=== PATIENT | male | born 1955 | race Hispanic/Latino ===

== ENCOUNTER 2018-12-31 08:28 | Inpatient (IN) | payer BC, OTHER ==
[~2018-12-31] VITALS: Ht 175.3 cm; Wt 88.4 kg
[~2018-12-31 08:28] MED LIST: GLYB5TAB8 PO; METF-446 PO; MULT-1052 PO; NEBI10TA PO; OLME1TAB11 PO
[2018-12-31] MEDS ORDERED: FUROSEMIDE 10 MG/ML 4ML VIAL ONE (09:30)
[2018-12-31 09:41] LABS: ABG BASE EXCESS -1.8 mmol/L (-2.0-3.0); ABG HCO3 20.3 mmol/L (21.0-28.0); ABG OXYGEN SATURATION 91.3 % (95.0-99.0); ABG PCO2 28 mmHg (35-48)
[2018-12-31 09:56] LABS: BASOPHILS % (AUTO) 1.2 % (0.0-5.0); EOSINOPHILS % (AUTO) 1.9 % (0.0-8.0); HEMATOCRIT 40.1 % (42-54); LYMPHOCYTES % (AUTO) 18.7 % (21.0-51.0); MEAN CORPUSCULAR HEMOGLOBIN 30.6 pg (27.0-33.0); MEAN CORPUSCULAR HGB CONC 33.3 g/dL (32.0-36.0); MEAN CORPUSCULAR VOLUME 91.9 fL (79-99); MONOCYTES % (AUTO) 9.1 % (3.0-13.0); NEUTROPHILS % (AUTO) 69.1 % (40.0-77.0); PLATELET COUNT (AUTO) 255 K/uL (130-400); RED BLOOD CELL COUNT(AUTO) 4.36 MIL/uL (4.50-6.20); RED CELL DISTRIBUTION WIDTH 13.2 % (11.0-15.5); WHITE BLOOD COUNT (AUTO) 5.3 K/uL (4.8-10.8)
[2018-12-31 10:10] LABS: INR 1.15 (0.85-1.15); PARTIAL THROMBOPLASTIN TIME 27.3 SEC (26.3-35.5)
[2018-12-31] MEDS ORDERED: ONDANSETRON HCL 4 MG/2 ML VIAL ONE (10:23)
[2018-12-31 10:27] LABS: CREATININE 1.2 mg/dL (0.5-1.5)
[2018-12-31 10:32] LABS: ALBUMIN 3.2 g/dL (3.5-5.0); BILIRUBIN,TOTAL 0.6 mg/dL (0.2-1.0); TOTAL PROTEIN, SERUM 6.5 g/dL (6.0-8.3)
[2018-12-31 10:46] LABS: B-TYPE NATRIURETIC PEPTIDE 1230 pg/mL (0-100)
[2018-12-31] MEDS ORDERED: SODIUM CHLORIDE 0.9% 10 ML VIAL IVP PRN (13:30)
[2018-12-31] MEDS ORDERED: FUROSEMIDE 10 MG/ML 4ML VIAL IV SCH (14:15)
[2018-12-31 15:08] VITALS: BP 142/86
[2018-12-31] MEDS ORDERED: ACET-2247 PO (15:24)
[2018-12-31] MEDS ORDERED: INSLAN SQ (15:24)
[2018-12-31] MEDS ORDERED: HYDR-4154 PO (16:08)
[2018-12-31] MEDS ORDERED: AMLO10TA7 PO (16:08)
[2018-12-31] MEDS ORDERED: ATOR40TA71 PO (16:08)
[2018-12-31] MEDS: LOSARTAN 50 MG TABLET PO SCH (16:35)
[2018-12-31] MEDS: ENOXAPARIN SODIUM 40 MG/0.4 ML SYRINGE SQ SCH (16:36)
[2018-12-31 20:10] VITALS: BP 116/69
[2018-12-31] MEDS: FUROSEMIDE 10 MG/ML 4ML VIAL IV SCH (20:25)
[2018-12-31] MEDS: FAMOTIDINE/PF 20 MG/2 ML VIAL IV SCH (20:25)
[2018-12-31] MEDS: CARVEDILOL 3.125 MG TABLET PO SCH (20:27)
--- NOTE | 2018-12-31 21:00 | NUR ---
Dr funes rounded on patient. is aware patient is a Diabetic. No orders given for sliding scale or sugar checks.
[2018-12-31 21:53] LABS: TROPONIN I 0.19 ng/mL (0.00-0.06)
--- NOTE | 2018-12-31 22:00 | NUR ---
Patient c/o sob and sweating post administration of Lasix and Coreg. Patient 02 sats at 96% at 2L. SBP did drop into 90's. Will continue to monitor. MD will be notified if symptoms persist
[2018-12-31 22:17] VITALS: BP 98/63
[2019-01-01] VITALS (8 sets, daily range): BP systolic 99–122; BP diastolic 62–77
[2019-01-01 04:50] LABS: CREATININE 1.3 mg/dL (0.5-1.5); POTASSIUM 3.3 mmol/L (3.5-5.1); TROPONIN I 0.26 ng/mL (0.00-0.06)
--- NOTE | 2019-01-01 07:45 | NUR ---
ASSESSMENT ENCOUNTERED PT AMBULATING FROM BATHROOM, GAIT STEADY AND STRONG WITH STAND BY ASSIST, A&OX3, CALM COOPERATIVE AND DOES NOT APPEAR TO BE IN ANY DISTRESS NOR ANY NEURO DEFICITS PRESENT. PT DENIES PAIN, SOB, NAUSEA. CALL LIGHT WITHIN REACH.
[2019-01-01] MEDS: FAMOTIDINE/PF 20 MG/2 ML VIAL IV SCH ×2 (08:57→21:03)
[2019-01-01] MEDS: FUROSEMIDE 10 MG/ML 4ML VIAL IV SCH (08:58)
[2019-01-01] MEDS: ENOXAPARIN SODIUM 40 MG/0.4 ML SYRINGE SQ SCH (08:58)
[2019-01-01] MEDS: CARVEDILOL 3.125 MG TABLET PO SCH ×2 (08:58→21:02)
[2019-01-01] MEDS: LOSARTAN 50 MG TABLET PO SCH (08:58)
[2019-01-01] MEDS ORDERED: POTASSIUM CHLORIDE 20 MEQ ERTAB PO SCH (10:30)
[2019-01-01] MEDS: INSULIN HUMULIN R 100 UNIT/ML 3ML SQ SCH ×3 (11:30→21:00)
[2019-01-01 12:52] LABS: APPEARANCE,URINE Clear (CLEAR); BILIRUBIN,URINE Negative (NEGATIVE); COLOR,URINE Yellow (YELLOW); GLUCOSE, URINE (UA) Negative (NEGATIVE); KETONES,URINE Negative (NEGATIVE); LEUKOCYTE ESTERASE ,URINE Negative (NEGATIVE); NITRATE,URINE Negative (NEGATIVE); OCCULT BLOOD,URINE Negative (NEGATIVE); PH,URINE 5.5 (5.0-8.0); PROTEIN,URINE Negative (NEGATIVE); UROBILINOGEN,URINE 0.2 mg/dL (0.2-1.0)
[2019-01-01] MEDS ORDERED: POTASSIUM CHLORIDE 20 MEQ ERTAB PO ONE (16:43)
[2019-01-01] MEDS: ASPIRIN 81MG TAB.CHEW PO SCH (17:26)
[2019-01-01] MEDS: FUROSEMIDE 10 MG/ML 2ML VIAL IV SCH (17:26)
[2019-01-01] MEDS: INSULIN GLARGINE 100 UNITS/ML 10 ML VIAL SQ SCH (21:00)
[2019-01-02 03:29] VITALS: BP 125/76
[2019-01-02] MEDS: FUROSEMIDE 10 MG/ML 2ML VIAL IV SCH ×2 (05:11→17:33)
[2019-01-02 05:13] LABS: CHOLESTEROL 112 mg/dL (<200); HDL CHOLESTEROL 30 mg/dL (29-71); LDL DIRECT 67 mg/dL (0-99); TRIGLYCERIDES 104 mg/dL (30-200)
[2019-01-02] MEDS: INSULIN HUMULIN R 100 UNIT/ML 3ML SQ SCH ×4 (05:47→21:09)
[2019-01-02 07:00] VITALS: BP 126/80
[2019-01-02] MEDS ORDERED: REGADENOSON 0.4 MG/5 ML PF SYG IVP SCH (07:15)
--- NOTE | 2019-01-02 07:25 | NUR ---
ASSESSMENT ENCOUNTERED PT SITTING ON SIDE OF BED, A&OX3,CALM COOPERATIVE AND DOES NOT APPEAR TO BE IN ANY DISTRESS NOR ANY NEURO DEFICITS PRESENT. PT DENIES PAIN, SOB, NAUSEA. PT IS NPO FOR LEXISCAN. CALL LIGHT WITHIN REACH.
[2019-01-02 11:00] VITALS: BP 128/76
[2019-01-02] MEDS: ASPIRIN 81MG TAB.CHEW PO SCH (13:25)
[2019-01-02] MEDS: CARVEDILOL 3.125 MG TABLET PO SCH ×2 (13:26→17:30)
[2019-01-02] MEDS: FAMOTIDINE/PF 20 MG/2 ML VIAL IV SCH ×2 (13:26→20:23)
[2019-01-02] MEDS: LOSARTAN 50 MG TABLET PO SCH (13:27)
[2019-01-02] MEDS: ENOXAPARIN SODIUM 40 MG/0.4 ML SYRINGE SQ SCH (13:27)
[2019-01-02 15:00] VITALS: BP 120/80
[2019-01-02 19:00] VITALS: BP 125/74
[2019-01-02] MEDS: INSULIN GLARGINE 100 UNITS/ML 10 ML VIAL SQ SCH (21:00)
[2019-01-02] MEDS ORDERED: ATORVASTATIN CALCIUM 10 MG TABLET PO SCH (21:00)
[2019-01-02 23:41] VITALS: BP 95/58
[2019-01-03 04:00] VITALS: BP 120/76
[2019-01-03 04:07] LABS: BASOPHILS % (AUTO) 1.4 % (0.0-5.0); EOSINOPHILS % (AUTO) 3.4 % (0.0-8.0); HEMATOCRIT 37.6 % (42-54); LYMPHOCYTES % (AUTO) 25.7 % (21.0-51.0); MEAN CORPUSCULAR HEMOGLOBIN 31.5 pg (27.0-33.0); MEAN CORPUSCULAR VOLUME 92.7 fL (79-99); MONOCYTES % (AUTO) 11.8 % (3.0-13.0); NEUTROPHILS % (AUTO) 57.7 % (40.0-77.0); NUCLEATED RED BLOOD CELLS 0.1 % (0.0-0.19); PLATELET COUNT (AUTO) 223 K/uL (130-400); RED BLOOD CELL COUNT(AUTO) 4.06 MIL/uL (4.50-6.20); RED CELL DISTRIBUTION WIDTH 13.3 % (11.0-15.5); WHITE BLOOD COUNT (AUTO) 5.1 K/uL (4.8-10.8)
[2019-01-03 04:19] LABS: CREATININE 1.3 mg/dL (0.5-1.5); MAGNESIUM 1.7 mg/dL (1.80-2.40); PHOSPHORUS 4.1 mg/dL (2.5-4.9); POTASSIUM 3.5 mmol/L (3.5-5.1)
[2019-01-03 04:23] LABS: B-TYPE NATRIURETIC PEPTIDE 1130 pg/mL (0-100)
[2019-01-03] MEDS: FUROSEMIDE 10 MG/ML 2ML VIAL IV SCH (05:18)
[2019-01-03] MEDS: INSULIN HUMULIN R 100 UNIT/ML 3ML SQ SCH ×2 (06:01→11:30)
[2019-01-03 07:53] VITALS: BP 119/77
[2019-01-03] MEDS: ASPIRIN 81MG TAB.CHEW PO SCH (08:50)
[2019-01-03] MEDS: FAMOTIDINE/PF 20 MG/2 ML VIAL IV SCH (08:50)
[2019-01-03] MEDS: LOSARTAN 50 MG TABLET PO SCH (08:51)
[2019-01-03] MEDS: CARVEDILOL 3.125 MG TABLET PO SCH (08:53)
[2019-01-03] MEDS: ENOXAPARIN SODIUM 40 MG/0.4 ML SYRINGE SQ SCH (08:54)
[2019-01-03] MEDS ORDERED: CARV6.2579 PO (09:54)
[2019-01-03] MEDS ORDERED: ASPI-555 PO (09:54)
[2019-01-03] MEDS ORDERED: CLOP75TA32 PO (09:54)
[2019-01-03] MEDS ORDERED: LOSA25TA41 PO (09:54)
[2019-01-03] MEDS ORDERED: FURO40TA5 PO (09:54)
[2019-01-03] MEDS ORDERED: SPIR25TA6 PO (09:54)
[2019-01-03 11:42] VITALS: BP 116/71
--- NOTE | 2019-01-03 13:45 | NUR ---
Patient read discharge instruction, education, and all questions were answered. Packet was given to the patient, all belongings were taken.
--- NOTE | 2019-01-03 15:13 | NUR ---
DC PLAN PATIENT LIVES WITH SPOUSE. INDEPENDENT ABLE TO PERFORM ADL'S. PATIENT HAS NO SERVICES OR DME'S. FEELS SAFE TO RETURN HOME. Addendum: 01/03/19 at 1514 by CARL THOMPSON RN CM Amended: Links added.
== END 2019-01-03 13:50 | disposition home or self-care (01) | DRG 291 ==
LOC: EDH 08:28 → EDHIP 12:40 → 2DH 15:05
PROVIDERS: ADMIT Family Medicine; ATTEND Family Medicine
DX: I11.0 Hypertensive heart disease with heart failure (principal); J96.01 Acute respiratory failure with hypoxia; I50.21 Acute systolic (congestive) heart failure; E44.1 Mild protein-calorie malnutrition; Z16.24 Resistance to multiple antibiotics; I45.10 Unspecified right bundle-branch block; E11.9 Type 2 diabetes mellitus without complications; I34.0 Nonrheumatic mitral (valve) insufficiency; E78.5 Hyperlipidemia, unspecified; I25.5 Ischemic cardiomyopathy; E78.00 Pure hypercholesterolemia, unspecified; I25.2 Old myocardial infarction; Z79.899 Other long term (current) drug therapy; Z87.891 Personal history of nicotine dependence; Z68.28 Body mass index [BMI] 28.0-28.9, adult; Z82.3 Family history of stroke; Z82.49 Family history of ischemic heart disease and other diseases of the circulatory system
CPT/HCPCS: 36415; 36600; 71045; 71046; 78452; 80048; 80053; 80061; 81003; 82550; 82803; 82948; 83735; 83874; 83880; 84100; 84484; 85025; 85610; 85651; 85730; 87040; 93005; 93017; 93306; 93970; 96374; A9500; G0378; J1650; J1815; J1940; J2405; J2785; J3490

== ENCOUNTER 2019-02-08 07:20 | Inpatient (IN) | payer BC ==
[2019-02-06 15:14] VITALS: BP 140/71
[2019-02-06 15:23] LABS: BASOPHILS % (AUTO) 0.9 % (0.0-5.0); EOSINOPHILS % (AUTO) 4.9 % (0.0-8.0); HEMATOCRIT 45.2 % (42-54); LYMPHOCYTES % (AUTO) 26.6 % (21.0-51.0); MEAN CORPUSCULAR HEMOGLOBIN 29.6 pg (27.0-33.0); MEAN CORPUSCULAR HGB CONC 34.1 g/dL (32.0-36.0); MEAN CORPUSCULAR VOLUME 86.8 fL (79-99); MONOCYTES % (AUTO) 8.2 % (3.0-13.0); NEUTROPHILS % (AUTO) 59.1 % (40.0-77.0); PLATELET COUNT (AUTO) 218 K/uL (130-400); RED BLOOD CELL COUNT(AUTO) 5.21 MIL/uL (4.50-6.20); RED CELL DISTRIBUTION WIDTH 12.6 % (11.0-15.5); WHITE BLOOD COUNT (AUTO) 6.7 K/uL (4.8-10.8)
[2019-02-06 15:26] LABS: APPEARANCE,URINE Clear (CLEAR); BILIRUBIN,URINE Negative (NEGATIVE); COLOR,URINE Yellow (YELLOW); GLUCOSE, URINE (UA) Negative (NEGATIVE); KETONES,URINE Negative (NEGATIVE); LEUKOCYTE ESTERASE ,URINE Negative (NEGATIVE); NITRATE,URINE Negative (NEGATIVE); OCCULT BLOOD,URINE Negative (NEGATIVE); PH,URINE 5.5 (5.0-8.0); PROTEIN,URINE Trace mg/dL (NEGATIVE)
[2019-02-06 15:31] LABS: CREATININE 1.3 mg/dL (0.5-1.5); POTASSIUM 4.7 mmol/L (3.5-5.1)
[2019-02-06 15:33] LABS: INR 1.09 (0.85-1.15); PARTIAL THROMBOPLASTIN TIME 25.2 SEC (26.3-35.5); PROTHROMBIN TIME 11.4 SEC (9.6-11.6)
[2019-02-06 15:52] LABS: BACTERIA,URINE Rare /HPF (None Seen); RBC,URINE 0-1 /HPF (0-1); WBC,URINE 0-1 /HPF (0-1)
[2019-02-06 15:53] LABS: SQUAMOUS EPITHELIAL CELL,UR Few /HPF (0-2)
--- NOTE | 2019-02-07 13:45 | NUR ---
LABS ABNORMAL LABS FAXED AND REPORTED TO JIMMIE ANDRADE NP. NO FURTHER ORDERS GIVEN
[2019-02-08] VITALS (31 sets, daily range): BP systolic 104–159; BP diastolic 41–98
[~2019-02-08] VITALS: Ht 170.2 cm; Wt 79.5 kg
[~2019-02-08 07:20] MED LIST changes: +ACET-2247 PO; +ASPI-555 PO; +ATOR40TA71 PO; +CARV6.2579 PO; +CLOP75TA32 PO; +FURO40TA5 PO; -GLYB5TAB8 PO; +INSLAN SQ; +LOSA25TA41 PO; -METF-446 PO; +MV-M1CAP15 PO; -NEBI10TA PO; -OLME1TAB11 PO; +SODIUM CHLORIDE 0.9% 500ML 500 ML IV SCH; +SPIR25TA6 PO
[2019-02-08] MEDS ORDERED: SODIUM CHLORIDE 0.9% 1000ML 1,000 ML IV ONE (07:38)
[2019-02-08] MEDS ORDERED: FURO20TA4 PO (07:52)
[2019-02-08] MEDS ORDERED: CARV6.25 PO (07:52)
[2019-02-08] MEDS ORDERED: NITROGLYCERIN 5 MG/ML 10 ML VIAL IV ONE (08:56)
[2019-02-08] MEDS ORDERED: BIVALIRUDIN 250 MG/VIAL IV ONE (08:56)
[2019-02-08] MEDS ORDERED: IOHEXOL-350 50ML VIAL IV ONE (08:57)
[2019-02-08] MEDS ORDERED: LIDOCAINE HCL 2% 20ML ONE (08:57)
[2019-02-08] MEDS ORDERED: IOHEXOL 350 MG/ML 100ML INFUS..BTL IV ONE (08:57)
[2019-02-08] MEDS ORDERED: MIDAZOLAM HCL 1 MG/ML 2ML VIAL ONE (09:45)
[2019-02-08] MEDS ORDERED: LABETALOL HCL 5 MG/ML 20ML VIAL IV ONE (09:50)
[2019-02-08] MEDS ORDERED: HEPARIN 25000 UNITS/250 ML D5W 250 ML IV ONE (10:07)
[2019-02-08] MEDS ORDERED: HEPARIN SODIUM 1000UNIT/ML 10ML VIAL ONE (10:07)
[2019-02-08] MEDS ORDERED: SODIUM CHLORIDE 0.9% 1000ML 1,000 ML IV SCH (10:22)
[2019-02-08] MEDS ORDERED: GLUCAGON 1MG KIT 1 MG ML IM PRN (10:30)
[2019-02-08] MEDS ORDERED: DEXTROSE 50%-WATER 50 ML DISP.SYRIN IV PRN (10:30)
[2019-02-08] MEDS ORDERED: NITROGLYCERIN 50 MG/D5% WATER 1 BOT ONE (10:31)
[2019-02-08] MEDS ORDERED: NITROGLYCERIN 50 MG/D5% WATER 250 BOT IV PRN (10:45)
[2019-02-08] MEDS ORDERED: HEPARIN 25000 UNITS/250 ML D5W 250 ML IV PRN (11:00)
[2019-02-08] MEDS: INSULIN HUMULIN R 100 UNIT/ML 3ML SQ SCH ×3 (11:30→21:00)
[2019-02-08] MEDS ORDERED: ALPRAZOLAM 0.25 MG TABLET PO PRN (16:15)
[2019-02-08] MEDS ORDERED: ACETAMINOPHEN-CODEINE 300/30MG TAB PO PRN ×2 (16:15→16:30)
[2019-02-08] MEDS ORDERED: ACETAMINOPHEN 325 MG TAB PO PRN (16:15)
[2019-02-08] MEDS ORDERED: ZOLPIDEM TARTRATE 5 MG TAB PO PRN (16:45)
[2019-02-08] MEDS ORDERED: ONDANSETRON HCL 4 MG/2 ML VIAL IVP PRN (16:45)
[2019-02-08] MEDS ORDERED: ALPRAZOLAM 1 MG TAB PO PRN (19:15)
[2019-02-08] MEDS ORDERED: MORPHINE SULFATE 2 MG/ML 1ML SYG ONE (19:44)
[2019-02-08] MEDS: MORPHINE SULFATE 2 MG/ML 1ML SYG IVP PRN ×2 (19:48→21:52)
[2019-02-08] MEDS ORDERED: INSULIN GLARGINE 100 UNITS/ML 10 ML VIAL SQ SCH (21:00)
[2019-02-08] MEDS: FAMOTIDINE/PF 20 MG/2 ML VIAL IV SCH (21:02)
[2019-02-08] MEDS: ATORVASTATIN CALCIUM 20 MG TABLET PO SCH (21:02)
[2019-02-08] MEDS: CARVEDILOL 6.25 MG TABLET PO SCH (21:03)
[2019-02-09] VITALS (59 sets, daily range): BP systolic 87–284; BP diastolic 33–271
--- NOTE | 2019-02-09 00:10 | NUR ---
Dr. Briscoe rounded on patient and discussed open heart surgery with patient. Orders given to obtain consent for CABG on 02/09/19.
[2019-02-09] MEDS: MORPHINE SULFATE 2 MG/ML 1ML SYG IVP PRN ×2 (00:22→10:05)
[2019-02-09 05:33] LABS: HEMOGLOBIN A1C 8.7 % (4.0-6.0)
[2019-02-09 05:34] LABS: BASOPHILS % (AUTO) 0.4 % (0.0-5.0); EOSINOPHILS % (AUTO) 2.9 % (0.0-8.0); HEMATOCRIT 41.7 % (42-54); LYMPHOCYTES % (AUTO) 21.9 % (21.0-51.0); MEAN CORPUSCULAR HEMOGLOBIN 29.4 pg (27.0-33.0); MEAN CORPUSCULAR HGB CONC 33.8 g/dL (32.0-36.0); MEAN CORPUSCULAR VOLUME 87.1 fL (79-99); MONOCYTES % (AUTO) 10.2 % (3.0-13.0); NEUTROPHILS % (AUTO) 64.2 % (40.0-77.0); PLATELET COUNT (AUTO) 180 K/uL (130-400); RED BLOOD CELL COUNT(AUTO) 4.79 MIL/uL (4.50-6.20); RED CELL DISTRIBUTION WIDTH 12.7 % (11.0-15.5); WHITE BLOOD COUNT (AUTO) 7.8 K/uL (4.8-10.8)
[2019-02-09 05:35] LABS: INR 1.12 (0.85-1.15); PROTHROMBIN TIME 11.7 SEC (9.6-11.6)
[2019-02-09 05:46] LABS: CREATININE 1.2 mg/dL (0.5-1.5); MAGNESIUM 1.5 mg/dL (1.80-2.40); POTASSIUM 4.2 mmol/L (3.5-5.1)
[2019-02-09] MEDS: INSULIN HUMULIN R 100 UNIT/ML 3ML SQ SCH ×2 (07:30→11:24)
[2019-02-09] MEDS ORDERED: EPINEPHRINE 8 MG in SODIUM CHLORIDE 0.9% 242 ML IV PRN (08:45)
[2019-02-09] MEDS ORDERED: NOREPINEPHRINE BITARTRATE 8 MG in SODIUM CHLORIDE 0.9% 250 ML IV PRN (08:45)
[2019-02-09] MEDS ORDERED: AMINOCAPROIC ACID 15,000 MG in SODIUM CHLORIDE 0.9% 500ML 420 ML IV PRN (08:45)
[2019-02-09] MEDS: CARVEDILOL 6.25 MG TABLET PO SCH (09:00)
[2019-02-09] MEDS ORDERED: SPIRONOLACTONE 25 MG TAB PO SCH (09:00)
[2019-02-09] MEDS ORDERED: ASPIRIN 81 MG EC TAB PO SCH (09:00)
[2019-02-09] MEDS ORDERED: LOSARTAN 50 MG TABLET PO SCH (09:00)
[2019-02-09] MEDS ORDERED: FUROSEMIDE 20 MG TABLET PO SCH (09:00)
[2019-02-09] MEDS ORDERED: MAGNESIUM 2GM PREMIX 50ML 50 ML IV PRN ×2 (09:15→16:00)
[2019-02-09] MEDS: FAMOTIDINE/PF 20 MG/2 ML VIAL IV SCH ×2 (10:05→23:09)
[2019-02-09] MEDS ORDERED: NITROGLYCERIN 50 MG/D5% WATER 1 BOT ONE (12:42)
[2019-02-09] MEDS ORDERED: CLINDAMYCIN 900 MG/D5% WATER 50 ML IV SCH (14:00)
[2019-02-09] MEDS ORDERED: AMINOCAPROIC ACID 250 MG/ML 20 ML VIAL IV ONE (14:29)
[2019-02-09] MEDS ORDERED: EPINEPHRINE 1 MG/ML AMPULE ONE (14:29)
[2019-02-09] MEDS ORDERED: LIDOCAINE PF 2% 5ML ABBOJECT ONE (14:29)
[2019-02-09] MEDS ORDERED: ESMOLOL HCL 10 MG/ML 10 ML VIAL ONE (14:29)
[2019-02-09] MEDS ORDERED: HEPARIN SODIUM 1000UNIT/ML 10ML VIAL ONE ×3 (14:29→15:26)
[2019-02-09] MEDS ORDERED: SODIUM BICARB 50MEQ 50ML VIAL ONE (14:29)
[2019-02-09] MEDS ORDERED: PROTAMINE SULFATE 10 MG/ML 25ML VIAL IV ONE (14:29)
[2019-02-09] MEDS ORDERED: NOREPINEPHRINE BITARTRATE 1 MG/1 ML ML IV ONE (14:30)
[2019-02-09] MEDS ORDERED: MIDAZOLAM HCL 1 MG/ML 2ML VIAL ONE (14:30)
[2019-02-09] MEDS ORDERED: ROCURONIUM 10MG/1ML SYR 10 MG/ML ML ONE (14:30)
[2019-02-09] MEDS ORDERED: FENTANYL CITRATE PF 50 MCG/1 ML 20ML VIAL IJ ONE (14:30)
[2019-02-09] MEDS ORDERED: PROPOFOL 10 MG/ML 20ML VIAL IV ONE (14:30)
[2019-02-09] MEDS ORDERED: ETOMIDATE 2 MG/ML 10 ML VIAL ONE (14:32)
[2019-02-09] MEDS ORDERED: AMIODARONE HCL 50 MG/ML 3 ML VIAL ONE ×2 (14:34→14:35)
[2019-02-09] MEDS ORDERED: OCTYL 2-CYANOACRYLATE 1 EACH TP ONE (14:40)
[2019-02-09] MEDS ORDERED: PAPAVERINE HCL 30 MG/ML 2ML VIAL ONE (14:40)
[2019-02-09] MEDS ORDERED: BACITRACIN 50,000 UNIT VIAL ONE (14:40)
--- NOTE | 2019-02-09 15:18 | NUR ---
DC PLAN VISITED WITH PATIENT. PATIENT LIVES WITH PARENTS. INDEPENDENT ABLE TO PERFORM ADL'S. PATIENT HAS NO SERVICES OR DME'S FEELS SAFE TO RETURN HOME. Addendum: 02/09/19 at 1519 by CARL THOMPSON RN CM Amended: Links added.
[2019-02-09 15:39] LABS: ABG BASE EXCESS -1.6 mmol/L (-2.0-3.0); ABG HCO3 20.2 mmol/L (21.0-28.0); ABG OXYGEN SATURATION 99.4 % (95.0-99.0); ABG PCO2 27 mmHg (35-48)
[2019-02-09] MEDS ORDERED: SODIUM CHLORIDE 0.9% 250 ML IV PRN (16:00)
[2019-02-09] MEDS ORDERED: INSULIN REGULAR, HUMAN 3ML 100 UNIT in SODIUM CHLORIDE 0.9% 99 ML IV SCH ×2 (16:00)
[2019-02-09] MEDS ORDERED: SODIUM CHLORIDE 0.9% 10 ML VIAL IVP PRN (16:00)
[2019-02-09] MEDS ORDERED: NOREPINEPHRINE 4MG/NS 250ML 250 ML IV PRN (16:00)
[2019-02-09] MEDS ORDERED: EPINEPHRINE 8 MG in DEXTROSE 5%-WATER 250 ML IV PRN (16:00)
[2019-02-09] MEDS ORDERED: CALCIUM GLUCONATE 1 GM in SODIUM CHLORIDE 0.9% 50 ML IV PRN (16:00)
[2019-02-09] MEDS ORDERED: PROPOFOL 1000 MG/100 ML 100 ML IV PRN (16:00)
[2019-02-09] MEDS ORDERED: AMINOCAPROIC ACID 15,000 MG in SODIUM CHLORIDE 0.9% 250 ML IV SCH (16:00)
[2019-02-09] MEDS ORDERED: SODIUM CHLORIDE 0.9% 1000ML 1,000 ML IV SCH (16:00)
[2019-02-09] MEDS ORDERED: NITROGLYCERIN 50 MG/D5% WATER 250 BOT IV SCH (16:00)
[2019-02-09] MEDS ORDERED: DEXTROSE 50%-WATER 50 ML DISP.SYRIN IV PRN (16:00)
[2019-02-09] MEDS ORDERED: TRAMADOL HCL 50 MG TABLET PO PRN (16:00)
[2019-02-09] MEDS ORDERED: GLUCAGON 1MG KIT 1 MG ML IM PRN (16:00)
[2019-02-09] MEDS ORDERED: MORPHINE SULFATE 4 MG/1ML SYG IV PRN (16:00)
[2019-02-09] MEDS ORDERED: MORPHINE SULFATE 2 MG/ML 1ML SYG IV PRN (16:00)
[2019-02-09] MEDS ORDERED: SODIUM CHLORIDE 0.9% 500ML 500 ML IV SCH (16:00)
[2019-02-09] MEDS ORDERED: POTASSIUM PHOS 15 mMOL+NS250ML 250 ML IV PRN (16:00)
[2019-02-09] MEDS ORDERED: ALBUMIN (HUMAN) 5% 250 ML IV PRN (16:00)
[2019-02-09] MEDS ORDERED: ONDANSETRON HCL 4 MG/2 ML VIAL IV PRN (16:00)
[2019-02-09] MEDS ORDERED: ACETAMINOPHEN 650 MG SUPPOSITORY RC PRN (16:00)
[2019-02-09 17:04] LABS: ABG BASE EXCESS 0.3 mmol/L (-2.0-3.0); ABG HCO3 23.2 mmol/L (21.0-28.0); ABG OXYGEN SATURATION 76.5 % (95.0-99.0); ABG PCO2 33 mmHg (35-48)
[2019-02-09] MEDS ORDERED: FENTANYL CITRATE PF 50 MCG/1 ML 2ML VIAL ONE ×3 (18:10)
[2019-02-09 18:26] LABS: ABG BASE EXCESS 1.5 mmol/L (-2.0-3.0); ABG HCO3 23.2 mmol/L (21.0-28.0); ABG OXYGEN SATURATION 98.9 % (95.0-99.0); ABG PCO2 29 mmHg (35-48)
--- NOTE | 2019-02-09 19:00 | NUR ---
Received patient from [place] at 1845 Intubated and sedated with balloon pump in right groin with a ratio of 1:1. Epi at 0.06 mcg/kg/min, Levofed at 3 mcg/min and amacar at 55 ml/hr. A-line not working but balloon pump pressure as tolerated. Pulses to doppler, chest tubes X2 and RIJ/left A-line in place.
[2019-02-09 19:15] LABS: ABG BASE EXCESS 0.3 mmol/L (-2.0-3.0); ABG HCO3 22.5 mmol/L (21.0-28.0); ABG OXYGEN SATURATION 98.6 % (95.0-99.0); ABG PCO2 30 mmHg (35-48)
[2019-02-09 19:22] LABS: HEMATOCRIT 36.3 % (42-54); MEAN CORPUSCULAR HEMOGLOBIN 29.9 pg (27.0-33.0); MEAN CORPUSCULAR VOLUME 85.4 fL (79-99); PLATELET COUNT (AUTO) 120 K/uL (130-400); RED BLOOD CELL COUNT(AUTO) 4.25 MIL/uL (4.50-6.20); RED CELL DISTRIBUTION WIDTH 12.7 % (11.0-15.5); WHITE BLOOD COUNT (AUTO) 13.3 K/uL (4.8-10.8)
[2019-02-09] MEDS: POTASSIUM CHLORIDE 20MEQ/100ML 100 ML IV PRN ×3 (19:25→23:55)
[2019-02-09 19:38] LABS: INR 1.27 (0.85-1.15); PARTIAL THROMBOPLASTIN TIME 25.3 SEC (26.3-35.5); PROTHROMBIN TIME 13.2 SEC (9.6-11.6)
[2019-02-09 19:43] LABS: MAGNESIUM 1.4 mg/dL (1.80-2.40); PHOSPHORUS 3.7 mg/dL (2.5-4.9); POTASSIUM 3.4 mmol/L (3.5-5.1)
[2019-02-09] MEDS ORDERED: CALCIUM GLUCONATE 1 GM/10 ML VIAL IV ONE ×2 (20:41→23:57)
[2019-02-09 20:48] LABS: ABG BASE EXCESS -1.4 mmol/L (-2.0-3.0); ABG HCO3 20.8 mmol/L (21.0-28.0); ABG OXYGEN SATURATION 99.6 % (95.0-99.0); ABG PCO2 29 mmHg (35-48)
[2019-02-09] MEDS: SODIUM BICARB 50MEQ 50ML VIAL IV PRN ×2 (20:51→22:53)
[2019-02-09] MEDS ORDERED: PHARMACY COMMUNICATION MISC SCH (21:30)
[2019-02-09 21:54] LABS: ABG BASE EXCESS 0.5 mmol/L (-2.0-3.0); ABG HCO3 22.9 mmol/L (21.0-28.0); ABG OXYGEN SATURATION 98.6 % (95.0-99.0); ABG PCO2 30 mmHg (35-48)
[2019-02-09 22:49] LABS: ABG BASE EXCESS -0.5 mmol/L (-2.0-3.0); ABG OXYGEN SATURATION 99.4 % (95.0-99.0); ABG PCO2 31 mmHg (35-48)
[2019-02-09] MEDS: ATORVASTATIN CALCIUM 20 MG TABLET PO SCH (23:09)
[2019-02-09 23:52] LABS: ABG BASE EXCESS 1.7 mmol/L (-2.0-3.0); ABG HCO3 24.5 mmol/L (21.0-28.0); ABG OXYGEN SATURATION 97.1 % (95.0-99.0); ABG PCO2 32 mmHg (35-48)
[2019-02-10] VITALS (56 sets, daily range): BP systolic 61–180; BP diastolic 21–103
[2019-02-10] MEDS: POTASSIUM CHLORIDE 20MEQ/100ML 100 ML IV PRN ×3 (00:36→06:43)
[2019-02-10 00:52] LABS: ABG BASE EXCESS -0.1 mmol/L (-2.0-3.0); ABG HCO3 22.8 mmol/L (21.0-28.0); ABG OXYGEN SATURATION 97.3 % (95.0-99.0); ABG PCO2 31 mmHg (35-48)
[2019-02-10] MEDS: SODIUM BICARB 50MEQ 50ML VIAL IV PRN (00:58)
[2019-02-10] MEDS: CLINDAMYCIN 900 MG/D5% WATER 50 ML IV SCH ×4 (00:58→18:32)
[2019-02-10 01:54] LABS: ABG BASE EXCESS 3.6 mmol/L (-2.0-3.0); ABG HCO3 25.9 mmol/L (21.0-28.0); ABG OXYGEN SATURATION 97.1 % (95.0-99.0); ABG PCO2 32 mmHg (35-48)
[2019-02-10 02:58] LABS: ABG BASE EXCESS 1.8 mmol/L (-2.0-3.0); ABG HCO3 26.3 mmol/L (21.0-28.0); ABG PCO2 41 mmHg (35-48)
[2019-02-10 03:58] LABS: ABG BASE EXCESS 3.5 mmol/L (-2.0-3.0); ABG HCO3 28.5 mmol/L (21.0-28.0); ABG OXYGEN SATURATION 95.8 % (95.0-99.0); ABG PCO2 45 mmHg (35-48)
[2019-02-10 04:53] LABS: HEMATOCRIT 29.1 % (42-54); MEAN CORPUSCULAR HGB CONC 34.7 g/dL (32.0-36.0); MEAN CORPUSCULAR VOLUME 86.4 fL (79-99); PLATELET COUNT (AUTO) 118 K/uL (130-400); RED BLOOD CELL COUNT(AUTO) 3.37 MIL/uL (4.50-6.20); RED CELL DISTRIBUTION WIDTH 12.9 % (11.0-15.5)
[2019-02-10 04:55] LABS: ABG HCO3 27.2 mmol/L (21.0-28.0); ABG OXYGEN SATURATION 98.6 % (95.0-99.0); ABG PCO2 36 mmHg (35-48)
[2019-02-10 05:19] LABS: INR 1.17 (0.85-1.15); PARTIAL THROMBOPLASTIN TIME 26.8 SEC (26.3-35.5); PROTHROMBIN TIME 12.2 SEC (9.6-11.6)
[2019-02-10 05:26] LABS: CREATININE 1.5 mg/dL (0.5-1.5); MAGNESIUM 2.1 mg/dL (1.80-2.40); PHOSPHORUS 2.1 mg/dL (2.5-4.9)
--- NOTE | 2019-02-10 05:37 | NUR ---
Dr. Briscoe called the unit and ordered to wean balloon pump to 1:2.
[2019-02-10] MEDS ORDERED: PHARMACY COMMUNICATION MISC SCH (06:45)
[2019-02-10 08:08] LABS: HEMATOCRIT 28.7 % (42-54); MEAN CORPUSCULAR HEMOGLOBIN 29.3 pg (27.0-33.0); MEAN CORPUSCULAR HGB CONC 33.4 g/dL (32.0-36.0); MEAN CORPUSCULAR VOLUME 87.5 fL (79-99); PLATELET COUNT (AUTO) 115 K/uL (130-400); RED BLOOD CELL COUNT(AUTO) 3.28 MIL/uL (4.50-6.20); WHITE BLOOD COUNT (AUTO) 12.5 K/uL (4.8-10.8)
--- NOTE | 2019-02-10 08:28 | NUR ---
PT WAS EXTUBATED AFTER PT HAD PARTLY TAKEN ET TUBE OUT AND PLACED ON AEROSOL FM AT 40%. ABG'S DRAWN AND WITHIN GOOD PARAMETERS.
[2019-02-10 08:30] LABS: ABG BASE EXCESS 1.3 mmol/L (-2.0-3.0); ABG HCO3 26.1 mmol/L (21.0-28.0); ABG OXYGEN SATURATION 95.4 % (95.0-99.0); ABG PCO2 42 mmHg (35-48)
--- NOTE | 2019-02-10 08:35 | NUR ---
PT WAS PLACED ON 1:3 RATIO ON THE IABP, AND WILL MONITOR IF IS ABLE TO TOLERATE.
[2019-02-10] MEDS: FAMOTIDINE/PF 20 MG/2 ML VIAL IV SCH ×2 (08:53→20:15)
[2019-02-10] MEDS: TRAMADOL HCL 50 MG TABLET PO PRN ×2 (09:41→20:21)
--- NOTE | 2019-02-10 14:00 | NUR ---
PT HAD BEEN C/O UNABLE TO URINATE AND EMPTY HIS BLADDER. PT HAD A BLADDER SCAN DONE AND NO URINE WAS NOTED IN BLADDER AND PT WAS ADVISED. NO FURTHER COMPLAINTS NOTED.
[2019-02-10] MEDS: ACETAMINOPHEN 325 MG TAB PO PRN (14:16)
--- NOTE | 2019-02-10 14:27 | NUR ---
patient is not ready for PT Evaluation for today as per Glen Velásquez RN (Patient is on balloon pump) Addendum: 02/10/19 at 1429 by ERLIN JACKSON, PT PT Amended: Links added.
--- NOTE | 2019-02-10 15:05 | NUR ---
PT WAS PLACED ON 1:3 ON THE IABP AND WILL BE DC'D LATER THIS PM.
--- NOTE | 2019-02-10 16:00 | NUR ---
PT CARE IABC discontinued by DOMINICK Domingo, under the direction of . Manual pressure applied to site [id number] - hemostasis obtained. Light pressure drsg applied to site - no bleeding/oozing or hematoma present. HOB elevated to 10-degrees. Pt repositioned for comfort.
--- NOTE | 2019-02-10 17:00 | NUR ---
TRANSFER Transferred by bed to room 219. Call light placed within reach.
[2019-02-10] MEDS: ATORVASTATIN CALCIUM 20 MG TABLET PO SCH (20:16)
[2019-02-11] VITALS (20 sets, daily range): BP systolic -10–166; BP diastolic -10–85
[2019-02-11] MEDS: CLINDAMYCIN 900 MG/D5% WATER 50 ML IV SCH ×4 (00:50→18:21)
[2019-02-11 03:52] LABS: HEMATOCRIT 26.5 % (42-54); MEAN CORPUSCULAR HEMOGLOBIN 28.9 pg (27.0-33.0); MEAN CORPUSCULAR HGB CONC 32.5 g/dL (32.0-36.0); MEAN CORPUSCULAR VOLUME 88.9 fL (79-99); PLATELET COUNT (AUTO) 115 K/uL (130-400); RED BLOOD CELL COUNT(AUTO) 2.98 MIL/uL (4.50-6.20); RED CELL DISTRIBUTION WIDTH 13.2 % (11.0-15.5); WHITE BLOOD COUNT (AUTO) 10.7 K/uL (4.8-10.8)
[2019-02-11 04:01] LABS: CREATININE 1.4 mg/dL (0.5-1.5); POTASSIUM 4.7 mmol/L (3.5-5.1)
[2019-02-11 04:39] LABS: BAND NEUTROPHILS % (MANUAL) 10 % (0-2); BASOPHILS % (MANUAL) 2 % (0-2); LYMPHOCYTES % (MANUAL) 12 % (22-44); MAN.DIFF COMMENT-IMPRESSION MANUAL DIFFERENTIAL; MONOCYTES % (MANUAL) 2 % (2-9); PLATELET MORPHOLOGY COMMENT ADEQUATE; SEGMENTED NEUTROPHILS % 74 % (40-70)
--- NOTE | 2019-02-11 04:40 | NUR ---
Patient wakes up and trying to pull out invasive lines,combative and very agitated.Patient attempted to jump out of bed.Staffs went to check on patient immediately and trying to re orient patient but to o avail.steel pan form placing supervisor and electronic systems security assessment were notified.DANIELLE Stack was called and notified regarding patient status.Received new order.roguer came as well and patient continue to be aggressive.Will continue to monitor patient.
[2019-02-11] MEDS ORDERED: LORAZEPAM 2 MG/ML 1 ML VIAL IVP ONE (04:45)
--- NOTE | 2019-02-11 05:00 | NUR ---
Bilateral soft wrist restraints applied to patient .Will continue to monitor patient.
--- NOTE | 2019-02-11 07:28 | NUR ---
Patient V/S stable.Remained on bilateral wrist restraints,sister to bedside.Bedside report given to incoming NOD using SBAR all questions answered.
[2019-02-11] MEDS: FAMOTIDINE 20MG TAB 20 MG TAB PO SCH (11:11)
[2019-02-11] MEDS: ASPIRIN 325MG EC TAB 325 MG TABLET.DR PO SCH (14:00)
[2019-02-11] MEDS: INSULIN HUMULIN R 100 UNIT/ML 3ML SQ SCH ×2 (16:07→21:04)
--- NOTE | 2019-02-11 18:00 | NUR ---
D/C CHEST TUBES, D/C F/C, D/C ARTERIAL LINE PER MD ORDER, EDUCATED PATIENT ON PROCEDURE FOR F/C REMOVAL. PATIENT STATED UNDERSTANDING, FAMILY AT BEDSIDE. 10 ML REMOVED FROM F/C. F/C REMOVED WITHOUT DIFFICULTY. URINAL PROVIDED. EDUCATED PATIENT ON ARTERIAL LINE REMOVAL, PATIENT STATED UNDERSTANDING. ARTERIAL LINE REMOVED WITHOUT DIFFICULTY. PRESSURE HELD FOR 10 MINUTES. SIMPLE GAUZE DRESSING PLACED AND SECURED WITH PAPER TAPE. EDUCATED PATIENT ON REMOVAL OF CHEST TUBE PROCEDURE. PRACTICED BREATHING TECHNIQUE, 3 DEEP BREATHS AND HOLDING IN THE FINAL BREATH. REMOVED CURRENT DRESSING, CLEANSED SITE WITH CHLORHEXADINE PREP. PREPARED SUTURES FOR TYING, REMOVED FIRST CHEST TUBE WITHOUT RESISTANCE IN ONE CARNES PULL, PULLED SUTURE TIGHT, TIED MULTIPLE KNOTS AND COVERED WITH VASELINE GAUZE. REPEATED SAME PROCEDURE FOR SECOND CHEST TUBE. REMOVED WITHOUT DIFFICULTY. COVERED WITH VASELINE GAUZE AND GAUZE, THEN SECURED WITH PAPER TAPE
[2019-02-11] MEDS: FUROSEMIDE 20 MG TABLET PO SCH (18:22)
[2019-02-11] MEDS: ATORVASTATIN CALCIUM 20 MG TABLET PO SCH (20:57)
[2019-02-11] MEDS: CARVEDILOL 3.125 MG TABLET PO SCH (20:58)
[2019-02-12] MEDS: CLINDAMYCIN 900 MG/D5% WATER 50 ML IV SCH ×4 (00:08→18:20)
[2019-02-12 03:19] VITALS: BP 133/70
[2019-02-12 03:44] LABS: MEAN CORPUSCULAR HEMOGLOBIN 29.5 pg (27.0-33.0); MEAN CORPUSCULAR HGB CONC 33.2 g/dL (32.0-36.0); PLATELET COUNT (AUTO) 137 K/uL (130-400); RED BLOOD CELL COUNT(AUTO) 2.81 MIL/uL (4.50-6.20); RED CELL DISTRIBUTION WIDTH 13.3 % (11.0-15.5); WHITE BLOOD COUNT (AUTO) 10.4 K/uL (4.8-10.8)
[2019-02-12 03:54] LABS: CREATININE 1.3 mg/dL (0.5-1.5); POTASSIUM 4.3 mmol/L (3.5-5.1)
[2019-02-12 04:22] LABS: BAND NEUTROPHILS % (MANUAL) 2 % (0-2); EOSINOPHILS % (MANUAL) 1 % (1-6); LYMPHOCYTES % (MANUAL) 13 % (22-44); MAN.DIFF COMMENT-IMPRESSION MANUAL DIFFERENTIAL; MONOCYTES % (MANUAL) 6 % (2-9); PLATELET MORPHOLOGY COMMENT ADEQUATE; SEGMENTED NEUTROPHILS % 78 % (40-70)
[2019-02-12] MEDS: INSULIN HUMULIN R 100 UNIT/ML 3ML SQ SCH ×4 (05:50→20:54)
[2019-02-12 07:20] VITALS: BP 110/61
--- NOTE | 2019-02-12 07:30 | NUR ---
ASSESSMENT ENCOUNTERED PT A&OX3, CALM COOPERATIVE AND DOES NOT APPEAR TO BE IN ANY DISTRESS NOR ANY NEURO DEFICITS PRESENT. PT DENIES PAIN, SOB, NAUSEA. STERNAL AND CHEST TUBE INCISION SITES DRY AND INTACT, DRESSING TO RIJ DRY ANT INTACT, INCENTIVE SPIROMETER AVERAGE OF 750ML PER ATTEMPT. PT IS ABLE TO TOLERATE FOODS, FLUIDS AND MEDICATION WITHOUT THROAT CLEARING OR COUGH. PT IS AMBULATORY, GAIT SLOW AND STEADY WITH 2 PERSON ASSIST. PT IS ABLE TO URINATE IN INCREMENTS OF 100ML AVERAGE IN URINAL APPROXIMATELY EVERY HOUR, PT REFUSES VANN CATH RE-INSERTION AND/OR STRAIGHT CATH. PT DENIES ANY ABDOMINAL DISCOMFORT. CALL LIGHT WITHIN REACH, FAMILY AT BEDSIDE.
--- NOTE | 2019-02-12 08:30 | NUR ---
BLADDER SCAN DISPLAYS 290ML, PT REFUSES VANN RE-INSERTION OR STRAIGHT CATH AND STATES HE WILL KEEP ATTEMPTING WITH URINAL
[2019-02-12] MEDS ORDERED: TAMSULOSIN HCL 0.4 MG CAP.ER.24H PO SCH (10:30)
[2019-02-12] MEDS: ASPIRIN 325MG EC TAB 325 MG TABLET.DR PO SCH (11:26)
[2019-02-12] MEDS: CARVEDILOL 3.125 MG TABLET PO SCH ×2 (11:27→20:33)
[2019-02-12] MEDS: FUROSEMIDE 20 MG TABLET PO SCH ×2 (11:27→17:38)
[2019-02-12] MEDS: FAMOTIDINE 20MG TAB 20 MG TAB PO SCH (11:27)
[2019-02-12 11:30] VITALS: BP 113/59
[2019-02-12 15:00] VITALS: BP 111/61
[2019-02-12 20:02] VITALS: BP 125/66
[2019-02-12] MEDS: ATORVASTATIN CALCIUM 20 MG TABLET PO SCH (20:33)
[2019-02-13 00:14] VITALS: BP 113/55
[2019-02-13 04:22] VITALS: BP 120/58
[2019-02-13 04:35] LABS: HEMATOCRIT 23.2 % (42-54); MEAN CORPUSCULAR HEMOGLOBIN 29.4 pg (27.0-33.0); MEAN CORPUSCULAR HGB CONC 33.6 g/dL (32.0-36.0); MEAN CORPUSCULAR VOLUME 87.5 fL (79-99); PLATELET COUNT (AUTO) 146 K/uL (130-400); RED BLOOD CELL COUNT(AUTO) 2.65 MIL/uL (4.50-6.20); RED CELL DISTRIBUTION WIDTH 13.7 % (11.0-15.5); WHITE BLOOD COUNT (AUTO) 7.9 K/uL (4.8-10.8)
[2019-02-13 04:47] LABS: CREATININE 1.3 mg/dL (0.5-1.5); POTASSIUM 3.7 mmol/L (3.5-5.1)
[2019-02-13] MEDS: INSULIN HUMULIN R 100 UNIT/ML 3ML SQ SCH ×4 (05:50→21:23)
[2019-02-13 07:48] VITALS: BP 128/70
[2019-02-13] MEDS: FAMOTIDINE 20MG TAB 20 MG TAB PO SCH (09:24)
[2019-02-13] MEDS: FUROSEMIDE 20 MG TABLET PO SCH ×2 (09:24→15:59)
[2019-02-13] MEDS: ASPIRIN 325MG EC TAB 325 MG TABLET.DR PO SCH (09:25)
[2019-02-13] MEDS: CARVEDILOL 3.125 MG TABLET PO SCH ×2 (09:25→21:27)
[2019-02-13] MEDS ORDERED: POTASSIUM CHLORIDE 20 MEQ ERTAB PO ONE (09:26)
[2019-02-13] MEDS: LISINOPRIL 5 MG TABLET PO SCH (09:27)
[2019-02-13] MEDS ORDERED: LIDOCAINE HCL-MPF 1% 2ML VIAL IV PRN (09:30)
[2019-02-13] MEDS ORDERED: POTASSIUM CHLORIDE 10% ELIXIR 20 MEQ/15 ML UDCUP PO PRN (09:30)
[2019-02-13] MEDS ORDERED: POTASSIUM CHLORIDE 20MEQ/100ML 100 ML IV PRN (09:30)
--- NOTE | 2019-02-13 10:38 | NUR ---
PATIENT IS AMBULATING ON THE HALLWAYS WITH PT AT THIS TIME.
[2019-02-13] MEDS: POTASSIUM CHLORIDE 20 MEQ ERTAB PO PRN (11:08)
[2019-02-13 11:27] VITALS: BP 126/58
[2019-02-13 16:58] VITALS: BP 132/67
[2019-02-13] MEDS ORDERED: EPOETIN ALFA 10,000 UNIT/ML VIAL SQ SCH (17:00)
[2019-02-13] MEDS: IRON SUCROSE COMPLEX 100 MG in SODIUM CHLORIDE 0.9% 50 ML IV SCH (17:23)
[2019-02-13 20:36] VITALS: BP 128/64
[2019-02-13] MEDS ORDERED: INSULIN GLARGINE 100 UNITS/ML 10 ML VIAL SQ SCH (21:00)
[2019-02-13] MEDS: ATORVASTATIN CALCIUM 20 MG TABLET PO SCH (21:27)
[2019-02-13] MEDS: TAMSULOSIN HCL 0.4 MG CAP.ER.24H PO SCH (21:27)
[2019-02-14] VITALS (7 sets, daily range): BP systolic 115–135; BP diastolic 56–69
[2019-02-14] MEDS: ACETAMINOPHEN 325 MG TAB PO PRN ×2 (00:27→21:33)
[2019-02-14 05:16] LABS: BASOPHILS % (AUTO) 0.5 % (0.0-5.0); HEMATOCRIT 21.6 % (42-54); LYMPHOCYTES % (AUTO) 22.6 % (21.0-51.0); MEAN CORPUSCULAR HEMOGLOBIN 29.7 pg (27.0-33.0); MEAN CORPUSCULAR HGB CONC 34.3 g/dL (32.0-36.0); MEAN CORPUSCULAR VOLUME 86.7 fL (79-99); MONOCYTES % (AUTO) 9.5 % (3.0-13.0); NEUTROPHILS % (AUTO) 61.8 % (40.0-77.0); PLATELET COUNT (AUTO) 165 K/uL (130-400); RED BLOOD CELL COUNT(AUTO) 2.49 MIL/uL (4.50-6.20); RED CELL DISTRIBUTION WIDTH 13.3 % (11.0-15.5); WHITE BLOOD COUNT (AUTO) 6.6 K/uL (4.8-10.8)
[2019-02-14 05:35] LABS: ALBUMIN 2.1 g/dL (3.5-5.0); CREATININE 1.2 mg/dL (0.5-1.5); MAGNESIUM 2.7 mg/dL (1.80-2.40); PHOSPHORUS 2.4 mg/dL (2.5-4.9); POTASSIUM 3.2 mmol/L (3.5-5.1)
[2019-02-14 05:38] LABS: B-TYPE NATRIURETIC PEPTIDE 494 pg/mL (0-100)
[2019-02-14] MEDS: INSULIN HUMULIN R 100 UNIT/ML 3ML SQ SCH ×4 (07:21→20:36)
[2019-02-14] MEDS: POTASSIUM CHLORIDE 20 MEQ ERTAB PO PRN ×3 (07:46→14:50)
[2019-02-14] MEDS: CARVEDILOL 3.125 MG TABLET PO SCH ×2 (08:24→20:38)
[2019-02-14] MEDS: LISINOPRIL 5 MG TABLET PO SCH (08:24)
[2019-02-14] MEDS: ASPIRIN 325MG EC TAB 325 MG TABLET.DR PO SCH (08:24)
[2019-02-14] MEDS: FAMOTIDINE 20MG TAB 20 MG TAB PO SCH (08:25)
[2019-02-14] MEDS: FUROSEMIDE 20 MG TABLET PO SCH ×2 (08:25→16:57)
[2019-02-14] MEDS: IRON SUCROSE COMPLEX 100 MG in SODIUM CHLORIDE 0.9% 50 ML IV SCH (08:26)
--- NOTE | 2019-02-14 10:20 | NUR ---
PT NOTE: PATIENT AMBULATED 150FT MIN ASSISTX1 /C 1 STANDING REST BREAK IN-BETWEEN SECONDARY FATIGUE. PATIENT REQUIRES MOD ASSIST FOR BED MOBILITY SUPINE-SIT. PATIENT REPORTS HE LIVES ALONE AND WILL NOT HAVE ASSISTANCE AT HOME FOR TRANSFERS. PATIENT IS UNABLE TO SAFELY TRANSFER OOB WITHOUT MOD ASSIST. PATIENT WILL BENEFIT FROM SNF REHAB TO [facility]OM[facility] SAFE AND INDEPENDENT TRANSFERS PRIOR TO D/C HOME. Addendum: 02/14/19 at 1123 by ARACELI LAYNE PT Amended: Links added.
--- NOTE | 2019-02-14 11:22 | NUR ---
PADMIN[facility] PLAN VISITED WITH PATIENT AND SISTER. HAD MANY QUESTIONS REGARDING PLAN OF CARE AND INSURANCE. EXPLAINED CRITERIA FOR SNF. SAID HE WANT TO SEND REFERRAL ANYWAY. LIVES WITH ELDERLY PARENTS THAT CAN NOT HELP HIM AND FEELS UNSAFE. BRANDY SIGNED FOR [facility] INFO SENT REP NOTIFIED. Addendum: 02/14/19 at 1124 by CARL THOMPSON RN CM Amended: Links added.
[2019-02-14] MEDS: INSULIN GLARGINE 100 UNITS/ML 10 ML VIAL SQ SCH (20:37)
[2019-02-14] MEDS: TAMSULOSIN HCL 0.4 MG CAP.ER.24H PO SCH (20:38)
[2019-02-14] MEDS: ATORVASTATIN CALCIUM 20 MG TABLET PO SCH (20:38)
[2019-02-15] MEDS: ACETAMINOPHEN 325 MG TAB PO PRN ×2 (03:34→20:32)
[2019-02-15 03:42] VITALS: BP 119/61
[2019-02-15 04:26] LABS: BASOPHILS % (AUTO) 0.4 % (0.0-5.0); EOSINOPHILS % (AUTO) 6.5 % (0.0-8.0); HEMATOCRIT 23.7 % (42-54); LYMPHOCYTES % (AUTO) 20.9 % (21.0-51.0); MEAN CORPUSCULAR HGB CONC 33.3 g/dL (32.0-36.0); MEAN CORPUSCULAR VOLUME 87.1 fL (79-99); MONOCYTES % (AUTO) 10.8 % (3.0-13.0); NEUTROPHILS % (AUTO) 60.6 % (40.0-77.0); PLATELET COUNT (AUTO) 229 K/uL (130-400); RED BLOOD CELL COUNT(AUTO) 2.72 MIL/uL (4.50-6.20); RED CELL DISTRIBUTION WIDTH 13.3 % (11.0-15.5); WHITE BLOOD COUNT (AUTO) 7.9 K/uL (4.8-10.8)
[2019-02-15 04:55] LABS: CREATININE 1.3 mg/dL (0.5-1.5); MAGNESIUM 1.7 mg/dL (1.80-2.40); PHOSPHORUS 2.9 mg/dL (2.5-4.9); POTASSIUM 3.6 mmol/L (3.5-5.1)
[2019-02-15] MEDS: INSULIN HUMULIN R 100 UNIT/ML 3ML SQ SCH ×4 (05:37→20:35)
[2019-02-15] MEDS: IRON SUCROSE COMPLEX 100 MG in SODIUM CHLORIDE 0.9% 50 ML IV SCH (07:27)
[2019-02-15] MEDS: LISINOPRIL 5 MG TABLET PO SCH (07:31)
[2019-02-15] MEDS: FUROSEMIDE 20 MG TABLET PO SCH ×2 (07:31→16:11)
[2019-02-15] MEDS: ASPIRIN 325MG EC TAB 325 MG TABLET.DR PO SCH (07:31)
[2019-02-15] MEDS: FAMOTIDINE 20MG TAB 20 MG TAB PO SCH (07:31)
[2019-02-15] MEDS: CARVEDILOL 3.125 MG TABLET PO SCH ×2 (07:31→20:30)
--- NOTE | 2019-02-15 08:00 | NUR ---
ASSESSMENT PT IS AAOX3 DENIES CP DENIES SOB DENIES NV NO COMPLAINTS RESTING IN BED. NO VISIBLE SIGNS OF DISTRESS NOTED. BREATHING PATTERN IS EVEN AND UNLABORED AT THIS TIME. STERNAL INCISION OPEN TO AIR, CLEAN DRY AND INTACT. ENCOURAGED USE OF IS 10XS Q1HR WHILE AWAKE, ENCOURAGED COUGH AND DEEP BREATHING WITH HEART PILLOW SPLINTING. CALL LIGHT WITHIN REACH.
[2019-02-15 08:02] VITALS: BP 127/61
[2019-02-15] MEDS ORDERED: COMPOUND IV MISC 1 EACH IVSOLN MISC PRN (11:45)
[2019-02-15 12:11] VITALS: BP 111/63
--- NOTE | 2019-02-15 13:42 | NUR ---
DC PLAN CALLED [facility] SAID THEY HAD SUBMITTED PACKET THIS MORNING. TODAY INSURANCE OPENED. PENDING INSURANCE VERDICT. Addendum: 02/15/19 at 1342 by CARL THOMPSON RN CM Amended: Links added.
--- NOTE | 2019-02-15 16:04 | NUR ---
Diet education: Provided pt with printed materials on heart healthy diet. Pt encouraged to increase fiber intake and reduce high fat intake, pt also encouraged to monitor blood sugars for improved overall health and quality of life. Pt with multiple nutritional questions, all questions answered by CARLOS. Addendum: 02/15/19 at [address] RD Amended: Links added.
--- NOTE | 2019-02-15 16:09 | NUR ---
Nutrition intervention: Nutrition notification for LOS x7. Pt admitted for CAD. He is currently on heart healthy diet NCS with good oral intake. No nutritional concerns reported. Provided pt with printed materials on heart healthy diet and encouraged to monitor sugar intake. Pt with multiple questions-all questions answered. Recommendations: Continue current diet therapy monitor I/O. Consult RD if pt continues to have nutritional questions. Addendum: 02/15/19 at [address] Amended: Links added.
[2019-02-15 16:11] VITALS: BP 108/58
[2019-02-15 19:00] VITALS: BP 116/58
[2019-02-15] MEDS: ATORVASTATIN CALCIUM 20 MG TABLET PO SCH (20:30)
[2019-02-15] MEDS: TAMSULOSIN HCL 0.4 MG CAP.ER.24H PO SCH (20:30)
[2019-02-15] MEDS: INSULIN GLARGINE 100 UNITS/ML 10 ML VIAL SQ SCH (20:33)
[2019-02-15 23:00] VITALS: BP 110/53
[2019-02-16 03:00] VITALS: BP 115/62
[2019-02-16] MEDS: INSULIN HUMULIN R 100 UNIT/ML 3ML SQ SCH ×2 (06:50→12:20)
[2019-02-16 07:49] VITALS: BP 126/71
[2019-02-16] MEDS: IRON SUCROSE COMPLEX 100 MG in SODIUM CHLORIDE 0.9% 50 ML IV SCH (08:32)
[2019-02-16] MEDS: FAMOTIDINE 20MG TAB 20 MG TAB PO SCH (08:32)
[2019-02-16] MEDS: CARVEDILOL 3.125 MG TABLET PO SCH (08:32)
[2019-02-16] MEDS: ASPIRIN 325MG EC TAB 325 MG TABLET.DR PO SCH (08:32)
[2019-02-16] MEDS: LISINOPRIL 5 MG TABLET PO SCH (08:33)
[2019-02-16] MEDS: FUROSEMIDE 20 MG TABLET PO SCH (08:33)
[2019-02-16 11:55] VITALS: BP 113/64
--- NOTE | 2019-02-16 15:18 | NUR ---
PADMINI SONI CALLED SAID PATIENT ACCEPTED. LET AND NURSE KNOW. MED REC DONE. WILL GO VIA [facility]. WOOD SENT. Addendum: 02/16/19 at 1519 by CARL THOMPSON RN CM Amended: Links added.
--- NOTE | 2019-02-16 16:33 | NUR ---
TRANSFER TO [facility] REPORT CALLED TO [facility], GIVEN TO LLOYD SCHMITZ. IV REMOVED TELEPAK DISCONTINUED. FOLLOW UP APPOINTMENTS SCHEDULED. PATIENT PICKED UP BY [facility].
== END 2019-02-16 15:32 | DRG 233 ==
LOC: DAH 07:20 → DAHIP 07:21 → DAH 07:21 → 2CV 11:13 → 2CH 18:31 → 2CV 02-09 15:15 → 2CH 02-10 17:55 → 2DH 02-12 06:38
PROVIDERS: ADMIT Internal Medicine; ATTEND Internal Medicine
PROC: 5A02210 Assistance with Cardiac Output using Balloon Pump, Continuous (ICD-10-PCS; principal; 2019-02-08)
PROC: 4A023N7 Measurement of Cardiac Sampling and Pressure, Left Heart, Percutaneous Approach (ICD-10-PCS; 2019-02-08)
PROC: B2151ZZ Fluoroscopy of Left Heart using Low Osmolar Contrast (ICD-10-PCS; 2019-02-08)
PROC: B2111ZZ Fluoroscopy of Multiple Coronary Arteries using Low Osmolar Contrast (ICD-10-PCS; 2019-02-08)
PROC: 021209W Bypass Coronary Artery, Three Arteries from Aorta with Autologous Venous Tissue, Open Approach (ICD-10-PCS; 2019-02-09)
PROC: 06BQ4ZZ Excision of Left Saphenous Vein, Percutaneous Endoscopic Approach (ICD-10-PCS; 2019-02-09)
PROC: 02100Z9 Bypass Coronary Artery, One Artery from Left Internal Mammary, Open Approach (ICD-10-PCS; 2019-02-09 12:00)
DX: I25.10 Atherosclerotic heart disease of native coronary artery without angina pectoris (principal); I50.21 Acute systolic (congestive) heart failure; E87.0 Hyperosmolality and hypernatremia; F05 Delirium due to known physiological condition; I08.0 Rheumatic disorders of both mitral and aortic valves; N28.9 Disorder of kidney and ureter, unspecified; I25.5 Ischemic cardiomyopathy; I11.0 Hypertensive heart disease with heart failure; D64.9 Anemia, unspecified; E11.9 Type 2 diabetes mellitus without complications; E78.2 Mixed hyperlipidemia; I25.2 Old myocardial infarction; Z87.891 Personal history of nicotine dependence; Z82.3 Family history of stroke; Z82.49 Family history of ischemic heart disease and other diseases of the circulatory system
CPT/HCPCS: 33967; 36415; 71045; 80048; 81001; 82040; 82330; 82435; 82803; 82947; 82948; 83036; 83605; 83735; 83880; 84100; 84132; 84145; 84295; 85018; 85025; 85027; 85347; 85610; 85730; 86850; 86900; 86901; 86922; 93005; 93458; 93880; 94002; 94003; 94010; 94150; 97039; 99156; 99157; A4344; A4606; A7048; C1894; G0378; J0171; J0282; J0583; J0610; J0885; J1644; J1756; J1815; J2001; J2250; J2440; J2704; J2720; J3010; J3475; J3480; J3490; J7030; J7040; P9045; Q9967

== ENCOUNTER 2019-06-30 14:56 | Inpatient (IN) | payer BC ==
[~2019-06-30] VITALS: Ht 175.3 cm; Wt 81.6 kg
[~2019-06-30 14:56] MED LIST changes: -ASPI-555 PO; +ASPI-556 PO; -ATOR40TA71 PO; +CARV6.25 PO; -CARV6.2579 PO; +FURO20TA4 PO; -FURO40TA5 PO; -SODIUM CHLORIDE 0.9% 500ML 500 ML IV SCH
[2019-06-30] MEDS ORDERED: ACETAMINOPHEN 325 MG TAB ONE (16:12)
[2019-06-30] MEDS ORDERED: ATOR40TA71 PO (17:41)
[2019-06-30] MEDS ORDERED: TAMS-1 PO (17:41)
[2019-06-30] MEDS ORDERED: SACU1TAB7 PO (17:41)
[2019-06-30 17:46] LABS: BASOPHILS % (AUTO) 0.4 % (0.0-5.0); EOSINOPHILS % (AUTO) 2.3 % (0.0-8.0); HEMATOCRIT 39.5 % (42-54); MEAN CORPUSCULAR HEMOGLOBIN 28.6 pg (27.0-33.0); MEAN CORPUSCULAR HGB CONC 34.4 g/dL (32.0-36.0); MEAN CORPUSCULAR VOLUME 83.2 fL (79-99); MONOCYTES % (AUTO) 6.2 % (3.0-13.0); NEUTROPHILS % (AUTO) 81.1 % (40.0-77.0); PLATELET COUNT (AUTO) 310 K/uL (130-400); RED BLOOD CELL COUNT(AUTO) 4.75 MIL/uL (4.50-6.20); RED CELL DISTRIBUTION WIDTH 13.9 % (11.0-15.5); WHITE BLOOD COUNT (AUTO) 9.9 K/uL (4.8-10.8)
[2019-06-30 18:01] LABS: POTASSIUM 4.6 mmol/L (3.5-5.1); TOTAL PROTEIN, SERUM 7.2 g/dL (6.0-8.3)
[2019-06-30 18:08] LABS: HEMOGLOBIN A1C 10.1 % (4.0-6.0)
[2019-06-30 18:41] LABS: ALBUMIN 2.4 g/dL (3.5-5.0)
[2019-06-30 19:00] VITALS: BP 146/71
[2019-06-30] MEDS ORDERED: VANCOMYCIN PROTOCOL PER PHARMACY IV SCH (20:00)
[2019-06-30] MEDS ORDERED: PHARMACY COMMUNICATION MISC SCH (20:30)
[2019-06-30 20:40] LABS: THYROID STIMULATING HORMONE 1.85 uIU/mL (0.36-3.74); URIC ACID 4.9 mg/dL (2.6-7.2)
[2019-06-30] MEDS ORDERED: COMPOUND IV REFRIGERATED 1 EACH IVSOLN MISC PRN (20:45)
[2019-06-30] MEDS ORDERED: VANCOMYCIN 1.5 GM in SODIUM CHLORIDE 0.9% 250 ML IV ONE (21:00)
[2019-06-30] MEDS ORDERED: ONDANSETRON HCL 4 MG/2 ML VIAL IVP PRN (21:45)
[2019-06-30] MEDS: TAMSULOSIN HCL 0.4 MG CAP.ER.24H PO SCH (21:48)
[2019-06-30] MEDS: SODIUM CHLORIDE 0.9% 1000ML 1,000 ML IV SCH (21:48)
[2019-06-30] MEDS: ATORVASTATIN CALCIUM 40 MG TABLET PO SCH (21:49)
[2019-06-30] MEDS: CARVEDILOL 6.25 MG TABLET PO SCH (21:49)
[2019-06-30] MEDS: INSULIN GLARGINE 100 UNITS/ML 10 ML VIAL SQ SCH (22:06)
[2019-06-30] MEDS: INSULIN HUMULIN R 100 UNIT/ML 3ML SQ SCH (22:06)
[2019-06-30] MEDS: HYDROMORPHONE HCL 0.5 MG/0.5 ML ML IVP PRN (22:23)
[2019-06-30 22:57] LABS: APPEARANCE,URINE Clear (CLEAR); BILIRUBIN,URINE Negative (NEGATIVE); COLOR,URINE Yellow (YELLOW); GLUCOSE, URINE (UA) >=1000 mg/dL (NEGATIVE); KETONES,URINE 15 mg/dL (NEGATIVE); LEUKOCYTE ESTERASE ,URINE Negative (NEGATIVE); NITRATE,URINE Negative (NEGATIVE); OCCULT BLOOD,URINE Negative (NEGATIVE); PH,URINE 5.5 (5.0-8.0); PROTEIN,URINE POS 1+ mg/dL (NEGATIVE)
[2019-06-30 23:01] LABS: CREATININE,URINE RANDOM 69 mg/dL (30-135); SODIUM,URINE RANDOM 90 mmol/l (40-220)
[2019-06-30 23:26] LABS: BACTERIA,URINE Rare /HPF (None Seen); RBC,URINE 0-1 /HPF (0-1); WBC,URINE 0-1 /HPF (0-1)
[2019-07-01] VITALS: BP 160/72
[2019-07-01 03:47] VITALS: BP 165/73
[2019-07-01] MEDS: ACETAMINOPHEN 325 MG TAB PO PRN ×2 (04:05→15:07)
[2019-07-01] MEDS: HYDROMORPHONE HCL 0.5 MG/0.5 ML ML IVP PRN ×2 (05:11→22:08)
[2019-07-01 05:25] LABS: BASOPHILS % (AUTO) 0.3 % (0.0-5.0); EOSINOPHILS % (AUTO) 2.2 % (0.0-8.0); HEMATOCRIT 35.3 % (42-54); MEAN CORPUSCULAR HEMOGLOBIN 27.7 pg (27.0-33.0); MEAN CORPUSCULAR HGB CONC 33.4 g/dL (32.0-36.0); MEAN CORPUSCULAR VOLUME 82.9 fL (79-99); MONOCYTES % (AUTO) 7.7 % (3.0-13.0); NEUTROPHILS % (AUTO) 75.8 % (40.0-77.0); PLATELET COUNT (AUTO) 293 K/uL (130-400); RED BLOOD CELL COUNT(AUTO) 4.26 MIL/uL (4.50-6.20); RED CELL DISTRIBUTION WIDTH 13.9 % (11.0-15.5); WHITE BLOOD COUNT (AUTO) 9.1 K/uL (4.8-10.8)
[2019-07-01 05:36] LABS: CREATININE 1.1 mg/dL (0.5-1.5); POTASSIUM 3.7 mmol/L (3.5-5.1)
[2019-07-01] MEDS: VANCOMYCIN 500MG+NS 100ML 100 ML IV SCH ×2 (06:21→17:39)
[2019-07-01] MEDS: INSULIN HUMULIN R 100 UNIT/ML 3ML SQ SCH ×4 (06:22→22:01)
[2019-07-01 08:00] VITALS: BP 137/89
[2019-07-01] MEDS: SODIUM CHLORIDE 0.9% 1000ML 1,000 ML IV SCH ×2 (08:21→22:09)
[2019-07-01] MEDS: CARVEDILOL 6.25 MG TABLET PO SCH ×2 (09:24→21:58)
[2019-07-01 12:00] VITALS: BP 169/76
[2019-07-01] MEDS: ASPIRIN 81MG TAB.CHEW PO SCH (12:17)
[2019-07-01] MEDS: TRAMADOL HCL 50 MG TABLET PO PRN ×2 (12:17→17:39)
[2019-07-01 16:00] VITALS: BP 160/67
--- NOTE | 2019-07-01 17:21 | NUR ---
cm note met with patient and states resides at home with parents , independent and active athome. no dme. works part time drives. dc plan is back to home. states no dc needs. Addendum: 07/01/19 at 1723 by AGUSTO RAGLAND CM Amended: Links added.
[2019-07-01 19:00] VITALS: BP 163/73
[2019-07-01] MEDS: ATORVASTATIN CALCIUM 40 MG TABLET PO SCH (21:57)
[2019-07-01] MEDS: TAMSULOSIN HCL 0.4 MG CAP.ER.24H PO SCH (21:57)
[2019-07-01] MEDS: INSULIN GLARGINE 100 UNITS/ML 10 ML VIAL SQ SCH (22:01)
[2019-07-02] VITALS (14 sets, daily range): BP systolic 116–180; BP diastolic 72–81
[2019-07-02 05:06] LABS: HEMATOCRIT 36.8 % (42-54); MEAN CORPUSCULAR HEMOGLOBIN 28.9 pg (27.0-33.0); MEAN CORPUSCULAR HGB CONC 34.2 g/dL (32.0-36.0); MEAN CORPUSCULAR VOLUME 84.4 fL (79-99); RED BLOOD CELL COUNT(AUTO) 4.36 MIL/uL (4.50-6.20); RED CELL DISTRIBUTION WIDTH 13.6 % (11.0-15.5); WHITE BLOOD COUNT (AUTO) 9.8 K/uL (4.8-10.8)
[2019-07-02] MEDS: ACETAMINOPHEN 650 MG SUPPOSITORY RC SCH (05:19)
[2019-07-02 05:31] LABS: ALBUMIN 2.1 g/dL (3.5-5.0); BILIRUBIN,TOTAL 0.7 mg/dL (0.2-1.0); TOTAL PROTEIN, SERUM 6.5 g/dL (6.0-8.3)
[2019-07-02] MEDS: VANCOMYCIN 500MG+NS 100ML 100 ML IV SCH (06:47)
[2019-07-02] MEDS: INSULIN HUMULIN R 100 UNIT/ML 3ML SQ SCH ×4 (06:49→21:37)
[2019-07-02] MEDS ORDERED: VANCOMYCIN 1GM+NS 250ML 250 ML IV SCH (07:15)
[2019-07-02] MEDS ORDERED: VANCOMYCIN 1.5 GM in SODIUM CHLORIDE 0.9% 250 ML IV SCH (07:15)
[2019-07-02] MEDS: CARVEDILOL 6.25 MG TABLET PO SCH ×3 (08:33→21:38)
[2019-07-02] MEDS: ASPIRIN 81MG TAB.CHEW PO SCH (08:33)
[2019-07-02] MEDS: HYDROMORPHONE HCL 0.5 MG/0.5 ML ML IVP PRN ×2 (08:39→16:55)
[2019-07-02] MEDS ORDERED: LISINOPRIL 20 MG TABLET PO SCH (09:45)
[2019-07-02 10:14] LABS: INR 1.06 (0.85-1.15); PARTIAL THROMBOPLASTIN TIME 31.3 SEC (26.3-35.5); PROTHROMBIN TIME 11.4 SEC (9.6-11.6)
[2019-07-02 10:47] LABS: PROTEIN,URINE RANDOM 31.9 mg/dL (0-11.9)
[2019-07-02] MEDS ORDERED: LEVOFLOXACIN 500 MG/D5W 100 ML 100 ML IV SCH (13:00)
--- NOTE | 2019-07-02 13:50 | NUR ---
TO RADIOLOGY PATIENT TRANSFERRED TO RADIOLOGY FOR CT GUIDED NEEDLE PLACEMENT FOR DRAINAGE OF ABSCESS TO LEFT LOWER EXTREMITY. PATIENT IS IN STABLE CONDITION.
--- NOTE | 2019-07-02 14:58 | NUR ---
U/S GD LLE ASPIRATION PROCEDURE PERFORMED BY DR Jose Antonio PRUITT. PUNCTURE SITE LT INNER THIGH ABOVE THE KNEE AND PATIENT TOLERATED PROCEDURE WELL. SPECIMEN COLLECTED AND SENT TO LAB. END OF PROCEDURE AT 1445. ASPIRATION NEEDLE REMOVED AND DRESSING APPLIED. NO BLEEDING NOTED. REPORT GIVEN TO Shivam CHILDS LVN AND PATIENT TRANSPORTED TO [facility] VIA BED AT 1500. AAO X3 WITH NO C/O PAIN.
--- NOTE | 2019-07-02 15:09 | NUR ---
POST PROCEDURE PATIENT RECEIVED FROM RADIOLOGY S/P ABSCESS DRAINAGE TO E. DRESSING IS DRY AND INTACT. PATIENT IS WITHOUT PAIN AT THIS TIME. POST OP V/S HAVE BEEN INITIATED. WILL CONTINUE TO MONITOR.
[2019-07-02] MEDS: TRAMADOL HCL 50 MG TABLET PO PRN ×2 (15:45→21:39)
[2019-07-02] MEDS: VANCOMYCIN 1GM+NS 250ML 250 ML IV SCH (18:06)
[2019-07-02] MEDS: ATORVASTATIN CALCIUM 40 MG TABLET PO SCH (21:37)
[2019-07-02] MEDS: INSULIN GLARGINE 100 UNITS/ML 10 ML VIAL SQ SCH (21:37)
[2019-07-02] MEDS: TAMSULOSIN HCL 0.4 MG CAP.ER.24H PO SCH (21:38)
[2019-07-03] MEDS: HYDROMORPHONE HCL 0.5 MG/0.5 ML ML IVP PRN (02:33)
[2019-07-03 03:53] VITALS: BP 142/70
[2019-07-03] MEDS: ACETAMINOPHEN 650 MG SUPPOSITORY RC SCH (04:45)
[2019-07-03 05:05] LABS: BASOPHILS % (AUTO) 0.6 % (0.0-5.0); HEMATOCRIT 34.4 % (42-54); MEAN CORPUSCULAR HEMOGLOBIN 28.1 pg (27.0-33.0); MEAN CORPUSCULAR HGB CONC 33.7 g/dL (32.0-36.0); MEAN CORPUSCULAR VOLUME 83.3 fL (79-99); MONOCYTES % (AUTO) 9.6 % (3.0-13.0); NEUTROPHILS % (AUTO) 69.2 % (40.0-77.0); PLATELET COUNT (AUTO) 333 K/uL (130-400); RED BLOOD CELL COUNT(AUTO) 4.13 MIL/uL (4.50-6.20); RED CELL DISTRIBUTION WIDTH 13.6 % (11.0-15.5)
[2019-07-03 05:29] LABS: BILIRUBIN,TOTAL 0.7 mg/dL (0.2-1.0); CREATININE 1.1 mg/dL (0.5-1.5); POTASSIUM 4.1 mmol/L (3.5-5.1); TOTAL PROTEIN, SERUM 6.4 g/dL (6.0-8.3)
[2019-07-03] MEDS: INSULIN HUMULIN R 100 UNIT/ML 3ML SQ SCH ×4 (05:41→21:00)
[2019-07-03] MEDS: VANCOMYCIN 1GM+NS 250ML 250 ML IV SCH ×2 (06:11→17:00)
[2019-07-03] MEDS: SODIUM CHLORIDE 0.9% 1000ML 1,000 ML IV SCH ×2 (06:12→21:57)
[2019-07-03 08:04] VITALS: BP 141/81
[2019-07-03] MEDS: LISINOPRIL 20 MG TABLET PO SCH (09:31)
[2019-07-03] MEDS: CARVEDILOL 6.25 MG TABLET PO SCH ×2 (09:32→21:00)
[2019-07-03] MEDS: ASPIRIN 81MG TAB.CHEW PO SCH (09:32)
[2019-07-03] MEDS: TRAMADOL HCL 50 MG TABLET PO PRN ×2 (10:49→16:39)
[2019-07-03 11:14] VITALS: BP 167/69
[2019-07-03 16:12] VITALS: BP 158/67
[2019-07-03 20:00] VITALS: BP 152/73
[2019-07-03] MEDS: INSULIN GLARGINE 100 UNITS/ML 10 ML VIAL SQ SCH (21:00)
[2019-07-03] MEDS: TAMSULOSIN HCL 0.4 MG CAP.ER.24H PO SCH (21:00)
[2019-07-03] MEDS: ATORVASTATIN CALCIUM 40 MG TABLET PO SCH (21:00)
[2019-07-03 23:51] VITALS: BP 152/64
[2019-07-04] MEDS: TRAMADOL HCL 50 MG TABLET PO PRN (03:27)
[2019-07-04 03:54] VITALS: BP 158/65
[2019-07-04] MEDS: ACETAMINOPHEN 650 MG SUPPOSITORY RC SCH (04:45)
[2019-07-04] MEDS: VANCOMYCIN 1GM+NS 250ML 250 ML IV SCH ×2 (05:09→18:25)
[2019-07-04 05:34] LABS: BASOPHILS % (AUTO) 0.6 % (0.0-5.0); EOSINOPHILS % (AUTO) 4.4 % (0.0-8.0); LYMPHOCYTES % (AUTO) 14.8 % (21.0-51.0); MEAN CORPUSCULAR HEMOGLOBIN 28.2 pg (27.0-33.0); MEAN CORPUSCULAR HGB CONC 34.1 g/dL (32.0-36.0); MEAN CORPUSCULAR VOLUME 82.7 fL (79-99); MONOCYTES % (AUTO) 8.9 % (3.0-13.0); NEUTROPHILS % (AUTO) 69.8 % (40.0-77.0); PLATELET COUNT (AUTO) 395 K/uL (130-400); RED BLOOD CELL COUNT(AUTO) 4.11 MIL/uL (4.50-6.20); RED CELL DISTRIBUTION WIDTH 13.5 % (11.0-15.5); WHITE BLOOD COUNT (AUTO) 6.6 K/uL (4.8-10.8)
[2019-07-04 06:17] LABS: ALBUMIN 2.1 g/dL (3.5-5.0); BILIRUBIN,TOTAL 0.7 mg/dL (0.2-1.0); POTASSIUM 4.2 mmol/L (3.5-5.1); TOTAL PROTEIN, SERUM 6.5 g/dL (6.0-8.3)
[2019-07-04] MEDS: INSULIN HUMULIN R 100 UNIT/ML 3ML SQ SCH ×4 (07:26→21:58)
[2019-07-04 08:49] VITALS: BP 128/74
[2019-07-04] MEDS: CARVEDILOL 6.25 MG TABLET PO SCH ×2 (09:39→21:49)
[2019-07-04] MEDS: ASPIRIN 81MG TAB.CHEW PO SCH (09:39)
[2019-07-04] MEDS: LISINOPRIL 20 MG TABLET PO SCH (09:39)
[2019-07-04 11:28] VITALS: BP 173/74
[2019-07-04] MEDS: SODIUM CHLORIDE 0.9% 1000ML 1,000 ML IV SCH (13:21)
[2019-07-04 16:51] VITALS: BP 175/69
[2019-07-04] MEDS ORDERED: HYDRALAZINE HCL 20 MG/ML VIAL ONE (18:45)
[2019-07-04] MEDS ORDERED: HYDRALAZINE HCL 20 MG/ML VIAL IV PRN (18:45)
[2019-07-04 20:12] VITALS: BP 159/69
[2019-07-04] MEDS: TAMSULOSIN HCL 0.4 MG CAP.ER.24H PO SCH (21:48)
[2019-07-04] MEDS: HYDROMORPHONE HCL 0.5 MG/0.5 ML ML IVP PRN (21:48)
[2019-07-04] MEDS: ATORVASTATIN CALCIUM 40 MG TABLET PO SCH (21:48)
[2019-07-04] MEDS: CEFUROXIME AXETIL 250 MG TABLET PO SCH (21:49)
[2019-07-04] MEDS: INSULIN GLARGINE 100 UNITS/ML 10 ML VIAL SQ SCH (21:56)
--- NOTE | 2019-07-05 00:17 | NUR ---
WOUND CARE NOTED DRESSING ON LEFT INNER KNEE AREA SATURATED WITH YELLOW DRAINAGE. REMOVED DRESSING. REAPPLIED 10 4X4 STERILE GAUZES AND AN ABD PAD AND SECURED WITH HYPAFIX TAPE. AREA IS RED AND WITH SOME SWELLING.
[2019-07-05 00:20] VITALS: BP 144/58
[2019-07-05 04:32] VITALS: BP 148/63
[2019-07-05] MEDS: ACETAMINOPHEN 650 MG SUPPOSITORY RC SCH (04:45)
[2019-07-05] MEDS: SODIUM CHLORIDE 0.9% 1000ML 1,000 ML IV SCH ×2 (04:45→20:09)
[2019-07-05 05:05] LABS: BASOPHILS % (AUTO) 0.6 % (0.0-5.0); EOSINOPHILS % (AUTO) 4.7 % (0.0-8.0); HEMATOCRIT 33.1 % (42-54); MEAN CORPUSCULAR HEMOGLOBIN 28.6 pg (27.0-33.0); MEAN CORPUSCULAR HGB CONC 34.4 g/dL (32.0-36.0); MONOCYTES % (AUTO) 11.5 % (3.0-13.0); NEUTROPHILS % (AUTO) 62.7 % (40.0-77.0); PLATELET COUNT (AUTO) 415 K/uL (130-400); RED BLOOD CELL COUNT(AUTO) 3.99 MIL/uL (4.50-6.20); RED CELL DISTRIBUTION WIDTH 13.7 % (11.0-15.5); WHITE BLOOD COUNT (AUTO) 5.3 K/uL (4.8-10.8)
[2019-07-05 05:38] LABS: ALBUMIN 2.2 g/dL (3.5-5.0); BILIRUBIN,TOTAL 0.6 mg/dL (0.2-1.0); CREATININE 1.1 mg/dL (0.5-1.5); POTASSIUM 4.1 mmol/L (3.5-5.1); TOTAL PROTEIN, SERUM 6.5 g/dL (6.0-8.3)
[2019-07-05] MEDS: INSULIN HUMULIN R 100 UNIT/ML 3ML SQ SCH ×4 (05:57→21:46)
[2019-07-05] MEDS: VANCOMYCIN 1GM+NS 250ML 250 ML IV SCH ×2 (06:00→17:34)
[2019-07-05 08:24] VITALS: BP 146/64
[2019-07-05] MEDS: CARVEDILOL 6.25 MG TABLET PO SCH ×2 (09:22→21:42)
[2019-07-05] MEDS: CEFUROXIME AXETIL 250 MG TABLET PO SCH ×2 (09:23→21:40)
[2019-07-05] MEDS: LISINOPRIL 20 MG TABLET PO SCH (09:23)
[2019-07-05] MEDS: ASPIRIN 81MG TAB.CHEW PO SCH (09:23)
[2019-07-05 11:25] VITALS: BP 171/73
[2019-07-05] MEDS: TRAMADOL HCL 50 MG TABLET PO PRN (13:53)
[2019-07-05 16:41] VITALS: BP 139/59
[2019-07-05 19:00] VITALS: BP 164/69
[2019-07-05] MEDS: ATORVASTATIN CALCIUM 40 MG TABLET PO SCH (21:40)
[2019-07-05] MEDS: TAMSULOSIN HCL 0.4 MG CAP.ER.24H PO SCH (21:41)
[2019-07-05] MEDS: INSULIN GLARGINE 100 UNITS/ML 10 ML VIAL SQ SCH (21:47)
[2019-07-05] MEDS ORDERED: TEMAZEPAM 7.5 MG CAPSULE PO PRN (22:00)
[2019-07-06] VITALS: BP 148/58
[2019-07-06 04:00] VITALS: BP 155/64
[2019-07-06] MEDS: ACETAMINOPHEN 650 MG SUPPOSITORY RC SCH (04:45)
[2019-07-06 04:58] LABS: BASOPHILS % (AUTO) 0.7 % (0.0-5.0); EOSINOPHILS % (AUTO) 4.5 % (0.0-8.0); HEMATOCRIT 33.7 % (42-54); MEAN CORPUSCULAR HEMOGLOBIN 28.4 pg (27.0-33.0); MEAN CORPUSCULAR HGB CONC 34.1 g/dL (32.0-36.0); MEAN CORPUSCULAR VOLUME 83.2 fL (79-99); MONOCYTES % (AUTO) 10.4 % (3.0-13.0); NEUTROPHILS % (AUTO) 62.4 % (40.0-77.0); PLATELET COUNT (AUTO) 429 K/uL (130-400); RED BLOOD CELL COUNT(AUTO) 4.05 MIL/uL (4.50-6.20); RED CELL DISTRIBUTION WIDTH 13.8 % (11.0-15.5); WHITE BLOOD COUNT (AUTO) 6.1 K/uL (4.8-10.8)
[2019-07-06 05:17] LABS: ALBUMIN 2.2 g/dL (3.5-5.0); BILIRUBIN,TOTAL 0.5 mg/dL (0.2-1.0); CREATININE 1.1 mg/dL (0.5-1.5); POTASSIUM 4.1 mmol/L (3.5-5.1); TOTAL PROTEIN, SERUM 6.6 g/dL (6.0-8.3)
[2019-07-06] MEDS: VANCOMYCIN 1GM+NS 250ML 250 ML IV SCH (06:10)
[2019-07-06] MEDS: INSULIN HUMULIN R 100 UNIT/ML 3ML SQ SCH ×2 (06:21→11:30)
[2019-07-06 07:30] VITALS: BP 161/75
[2019-07-06] MEDS: ASPIRIN 81MG TAB.CHEW PO SCH (08:39)
[2019-07-06] MEDS: CARVEDILOL 6.25 MG TABLET PO SCH (08:39)
[2019-07-06] MEDS: CEFUROXIME AXETIL 250 MG TABLET PO SCH (08:40)
[2019-07-06] MEDS: LISINOPRIL 20 MG TABLET PO SCH (08:40)
[2019-07-06] MEDS ORDERED: INSLAN SQ (08:59)
[2019-07-06 12:33] VITALS: BP 123/69
--- NOTE | 2019-07-06 13:07 | NUR ---
RDSCREEN - LOS X 6 DAYS Pt admitted for Cellulitis of Lower left limb. History of DM, HTN, CAD,s/p CABG x4. Pt tolerating 75gm CC, Finely chopped diet order with no report of GI distress, Good PO intake at 100%. BG 197 at time of screen. Recommend continue diet order. RD to continue to monitor. Please notify as additional nutrition concerns arise. Thank you. Addendum: 07/06/19 at [address] Amended: Links added.
--- NOTE | 2019-07-06 14:20 | NUR ---
INSTRUCTIONS DISCHARGE INSTRUCTIONS GIVEN TO PATIENT USING TEACH BACK. NEW PRESCRIPTIONS PLACED IN DISCHARGE PACKET ALONG WITH ALL PRINTED INFORMATION AND MD INSTRUCTIONS. ALL F/U APPOINTMENTS HAVE BEEN MADE. IV HAS BEEN REMOVED WITH TIP INTACT. DIRECT PRESSURE APPLIED UNTIL BLEEDING CONTROLLED THEN SITE COVERED WITH GAUZE AND SECURED WITH TAPE. NO QUESTIONS OR CONCERNS VOICED. PENDING RIDE HOME.
== END 2019-07-06 14:50 | disposition home or self-care (01) | DRG 872 ==
LOC: 3DH 15:45
PROVIDERS: ADMIT Internal Medicine; ATTEND Internal Medicine
PROC: 0Y9D3ZZ Drainage of Left Upper Leg, Percutaneous Approach (ICD-10-PCS; principal; 2019-06-30)
DX: A41.01 Sepsis due to Methicillin susceptible Staphylococcus aureus (principal); I50.22 Chronic systolic (congestive) heart failure; L02.416 Cutaneous abscess of left lower limb; L03.116 Cellulitis of left lower limb; N17.9 Acute kidney failure, unspecified; E78.00 Pure hypercholesterolemia, unspecified; E78.5 Hyperlipidemia, unspecified; I11.0 Hypertensive heart disease with heart failure; I25.10 Atherosclerotic heart disease of native coronary artery without angina pectoris; I25.5 Ischemic cardiomyopathy; N40.0 Benign prostatic hyperplasia without lower urinary tract symptoms; E66.9 Obesity, unspecified; E11.21 Type 2 diabetes mellitus with diabetic nephropathy; E11.65 Type 2 diabetes mellitus with hyperglycemia; R53.81 Other malaise; Z68.26 Body mass index [BMI] 26.0-26.9, adult; Z95.1 Presence of aortocoronary bypass graft; Z88.0 Allergy status to penicillin; Z79.899 Other long term (current) drug therapy; Z86.73 Personal history of transient ischemic attack (TIA), and cerebral infarction without residual deficits; Z82.3 Family history of stroke; Z83.3 Family history of diabetes mellitus; Z82.49 Family history of ischemic heart disease and other diseases of the circulatory system
CPT/HCPCS: 36415; 73700; 75989; 76770; 76882; 76942; 80048; 80053; 80202; 81001; 82570; 82948; 83036; 83605; 83880; 84145; 84156; 84300; 84443; 84484; 84540; 84550; 85025; 85027; 85610; 85730; 87040; 87070; 87071; 87076; 87077; 87186; 87205; 93005; 93971; G0378; J0360; J1170; J1815; J1956; J3370; J7050

== ENCOUNTER 2021-08-24 05:08 | Emergency (ER) | payer BC ==
[~2021-08-24] VITALS: Ht 172.7 cm; Wt 91.6 kg
[~2021-08-24 05:08] MED LIST changes: -ACET-2247 PO; +ATOR40TA71 PO; -CLOP75TA32 PO; -LOSA25TA41 PO; -MULT-1052 PO; -MV-M1CAP15 PO; +SACU1TAB7 PO; -SPIR25TA6 PO; +TAMS-1 PO
[2021-08-24] MEDS ORDERED: NITROGLYCERIN 1GM OINT 1 INCH/1GM TD ONE ×2 (05:33→06:00)
[2021-08-24] MEDS ORDERED: ASPIRIN 325MG TAB ONE (05:47)
[2021-08-24 05:48] LABS: APPEARANCE,URINE CLEAR (CLEAR); BILIRUBIN,URINE NEGATIVE (NEGATIVE); COLOR,URINE YELLOW (YELLOW); GLUCOSE, URINE (UA) NEGATIVE (NEGATIVE); KETONES,URINE NEGATIVE (NEGATIVE); LEUKOCYTE ESTERASE ,URINE NEGATIVE (NEGATIVE); NITRATE,URINE NEGATIVE (NEGATIVE); OCCULT BLOOD,URINE SMALL (NEGATIVE); PROTEIN,URINE 100 mg/dL (NEGATIVE); UROBILINOGEN,URINE 0.2 mg/dL (0.2-1.0)
[2021-08-24 05:51] LABS: BASOPHILS % (AUTO) 0.8 % (0.0-5.0); EOSINOPHILS % (AUTO) 4.9 % (0.0-8.0); HEMATOCRIT 51.7 % (42-54); LYMPHOCYTES % (AUTO) 27.5 % (21.0-51.0); MEAN CORPUSCULAR HEMOGLOBIN 30.2 pg (27.0-33.0); MEAN CORPUSCULAR HGB CONC 34.2 g/dL (32.0-36.0); MEAN CORPUSCULAR VOLUME 88.2 fL (79-99); MONOCYTES % (AUTO) 9.5 % (3.0-13.0); NEUTROPHILS % (AUTO) 56.8 % (40.0-77.0); PLATELET COUNT (AUTO) 217 K/uL (130-400); RED BLOOD CELL COUNT(AUTO) 5.86 MIL/uL (4.50-6.20); RED CELL DISTRIBUTION WIDTH 12.8 % (11.0-15.5); WHITE BLOOD COUNT (AUTO) 5.9 K/uL (4.8-10.8)
[2021-08-24 06:30] LABS: BACTERIA,URINE None Seen /HPF (None Seen); WBC,URINE None Seen /HPF (0-1)
[2021-08-24 06:31] LABS: SQUAMOUS EPITHELIAL CELL,UR Rare /HPF (0-2)
[2021-08-24 06:40] LABS: ALBUMIN 3.4 g/dL (3.5-5.0); BILIRUBIN,TOTAL 1.1 mg/dL (0.2-1.0); CREATININE 1.2 mg/dL (0.5-1.5); POTASSIUM 4.2 mmol/L (3.5-5.1); TOTAL PROTEIN, SERUM 6.9 g/dL (6.0-8.3)
[2021-08-24] MEDS ORDERED: SACUBITRIL/VALSARTAN 1 EACH TABLET PO SCH (08:30)
[2021-08-24 09:20] VITALS: BP 158/78
== END 2021-08-24 09:58 | disposition home or self-care (01) ==
LOC: EDH 05:08
DX: I10 Essential (primary) hypertension (principal); F41.9 Anxiety disorder, unspecified; E11.9 Type 2 diabetes mellitus without complications; E78.00 Pure hypercholesterolemia, unspecified; Z98.890 Other specified postprocedural states; Z79.899 Other long term (current) drug therapy; Z88.1 Allergy status to other antibiotic agents
CPT/HCPCS: 36415; 71045; 80053; 81001; 84484; 85025; 93005

== ENCOUNTER 2021-09-06 18:32 | Emergency (ER) | payer BC ==
[~2021-09-06] VITALS: Ht 172.7 cm; Wt 88.9 kg
[2021-09-06 19:17] LABS: BASOPHILS % (AUTO) 0.6 % (0.0-5.0); EOSINOPHILS % (AUTO) 1.6 % (0.0-8.0); HEMATOCRIT 48.2 % (42-54); LYMPHOCYTES % (AUTO) 23.4 % (21.0-51.0); MEAN CORPUSCULAR HGB CONC 35.3 g/dL (32.0-36.0); MONOCYTES % (AUTO) 6.2 % (3.0-13.0); NEUTROPHILS % (AUTO) 67.9 % (40.0-77.0); PLATELET COUNT (AUTO) 215 K/uL (130-400); RED BLOOD CELL COUNT(AUTO) 5.48 MIL/uL (4.50-6.20); RED CELL DISTRIBUTION WIDTH 12.7 % (11.0-15.5); WHITE BLOOD COUNT (AUTO) 6.4 K/uL (4.8-10.8)
[2021-09-06 19:30] LABS: CARBON DIOXIDE 26 mmol/L (21-32); CHLORIDE 98 mmol/L (101-111); CREATININE 1.2 mg/dL (0.5-1.5); GLOMERULAR FILTR. RATE CALC 65 mL/min (>60); GLUCOSE,RANDOM 258 mg/dL (70-105); POTASSIUM 4.3 mmol/L (3.5-5.1); SODIUM SERUM 133 mmol/L (136-145); UREA NITROGEN, BLOOD 10 mg/dL (7-18)
[2021-09-06 19:35] LABS: ALANINE AMINOTRANSFERASE 18 U/L (12-78); ALBUMIN 3.6 g/dL (3.5-5.0); ASPARTATE AMINOTRANSFERASE 14 U/L (10-37); TOTAL PROTEIN, SERUM 7.6 g/dL (6.0-8.3)
[2021-09-06 19:36] LABS: APPEARANCE,URINE Clear (CLEAR); BILIRUBIN,URINE Negative (NEGATIVE); COLOR,URINE Yellow (YELLOW); GLUCOSE, URINE (UA) >=1000 mg/dL (NEGATIVE); KETONES,URINE Negative (NEGATIVE); LEUKOCYTE ESTERASE ,URINE Negative (NEGATIVE); NITRATE,URINE Negative (NEGATIVE); OCCULT BLOOD,URINE Nonhemolyzed Trace (NEGATIVE); PROTEIN,URINE POS 2+ mg/dL (NEGATIVE)
[2021-09-06 19:59] LABS: BACTERIA,URINE Rare /HPF (None Seen); RBC,URINE 0-1 /HPF (0-1); SQUAMOUS EPITHELIAL CELL,UR Rare /HPF (0-2); WBC,URINE 0-1 /HPF (0-1)
[2021-09-06 21:00] VITALS: BP 134/74
== END 2021-09-06 22:11 | disposition home or self-care (01) ==
LOC: EDH 18:32
DX: U07.1 COVID-19 (principal); E11.9 Type 2 diabetes mellitus without complications; E78.00 Pure hypercholesterolemia, unspecified; I10 Essential (primary) hypertension; Z88.1 Allergy status to other antibiotic agents; Z79.4 Long term (current) use of insulin; Z79.82 Long term (current) use of aspirin; Z79.899 Other long term (current) drug therapy; Z98.890 Other specified postprocedural states
CPT/HCPCS: 99284; 87635; 84484; 80053; 85025; 87804 ×2; 81001; 36415; 93005; C9803

== ENCOUNTER → 2021-10-13 | Outpatient (CLI) | payer BC | END | disposition home or self-care (01) | LOC: SHCH 11:30 | PROVIDERS: ATTEND Internal Medicine Cardiovascular Disease | DX: I25.5 Ischemic cardiomyopathy (principal); I25.10 Atherosclerotic heart disease of native coronary artery without angina pectoris; I10 Essential (primary) hypertension; E11.9 Type 2 diabetes mellitus without complications; E78.5 Hyperlipidemia, unspecified; Z95.1 Presence of aortocoronary bypass graft | CPT/HCPCS: 93306 ==

== ENCOUNTER → 2022-07-06 | Outpatient (CLI) | payer BC ==
[2022-07-06 14:15] LABS: CREATININE 1.2 mg/dL (0.5-1.5)
== END | disposition home or self-care (01) ==
LOC: LAB 08:54
PROVIDERS: ATTEND Internal Medicine Cardiovascular Disease
DX: I10 Essential (primary) hypertension (principal)
CPT/HCPCS: 36415; 80048

== ENCOUNTER → 2023-01-06 | Outpatient (CLI) | payer BC ==
[~2023-01-06] MED LIST changes: +AMLO-257 PO; -CARV6.25 PO; -FURO20TA4 PO; -INSLAN SQ; +INSREG SQ; +LABE200T7 PO; -SACU1TAB7 PO; -TAMS-1 PO
[2023-01-06 16:35] LABS: CREATININE 1.6 mg/dL (0.5-1.5); POTASSIUM 4.6 mmol/L (3.5-5.1)
== END | disposition home or self-care (01) ==
LOC: LAB 15:28
PROVIDERS: ATTEND Nurse Practitioner Acute Care
DX: I11.0 Hypertensive heart disease with heart failure (principal); I50.32 Chronic diastolic (congestive) heart failure
CPT/HCPCS: 36415; 80048; 83880